=== PATIENT | female | born 2005 | race African-American/Black ===

== ENCOUNTER → 2025-02-04 | Outpatient (CLI) | payer OTHER, SELFPAY ==
[2025-02-04 13:10] LABS: Absolute Lymphocyte Count 3.07 X10^3/uL (0.83-4.51); Absolute Neutrophil Count 2.9 X10^3/uL (2.0-7.7); Basophil# 0.04 X10^3/uL; Basophil% 0.6 % (0-1); Eosinophil# 0.01 X10^3/uL; Eosinophils% 0.1 % (0-5); Hematocrit 24.6 % (37-47); Hemoglobin 6.8 g/dL (12.0-15.0); Lymphocyte # 3.07 X10^3/ul (0.83-4.51); Mean Corp Hgb Conc 27.6 g/dL (32-36); Mean Corpuscular Hgb 18.7 pg (27.0-32.0); Mean Corpuscular Volume 67.6 fL (81-99); Mean Platelet Vol. 9.6 fl (6.2-12.0); NRBC Flagged by Analyzer 0 % (0-5); Neutrophil # 2.94 X10^3/uL (2.7-7.7); POSITIVE MORPHOLOGY YES; Platelet Count 395 K/mm3 (150-450); RBC Distribution Width CV 20.8 % (11.6-14.6); RBC Distribution Width SD 49.8 fl (35.1-43.9); Red Blood Count 3.64 M/mm3 (4.2-5.4); White Blood Count 6.7 K/mm3 (4.4-11.0)
[2025-02-04 13:14] LABS: Differential Indicated SCAN CRITERIA MET
[2025-02-04 13:51] LABS: Iron 11 ug/dL (50-170); Iron Binding Capacity,Unsat 486 ug/dL (228-428)
[2025-02-04 14:04] LABS: Iron Binding Capacity,Total 497 ug/dL (250-450); PERCENT IRON SATURATION 2.2 % (13-59)
[2025-02-04 14:09] LABS: Anisocytosis 2+; Hypochromasia 2+; Polychromasia 1+
== END | disposition home or self-care (01) ==
LOC: LAB 12:14
PROVIDERS: Referring Provider Nurse Practitioner Acute Care; Visit Provider Nurse Practitioner Acute Care
DX: R14.0 Abdominal distension (gaseous) (principal); K62.5 Hemorrhage of anus and rectum; R10.11 Right upper quadrant pain; R10.32 Left lower quadrant pain; Z80.0 Family history of malignant neoplasm of digestive organs
CPT/HCPCS: 36415; 83540; 83550; 85025

== ENCOUNTER → 2025-02-11 | Outpatient (CLI) | payer OTHER, SELFPAY ==
[2025-02-11 17:14] LABS: Absolute Lymphocyte Count 3.91 X10^3/uL (0.83-4.51); Absolute Neutrophil Count 2.6 X10^3/uL (2.0-7.7); Basophil# 0.03 X10^3/uL; Basophil% 0.4 % (0-1); Eosinophils% 1.4 % (0-5); Hematocrit 23.3 % (37-47); Hemoglobin 6.5 g/dL (12.0-15.0); Lymphocyte # 3.91 X10^3/ul (0.83-4.51); Lymphocyte % 55.1 % (19-41); Mean Corp Hgb Conc 27.9 g/dL (32-36); Mean Corpuscular Hgb 19.1 pg (27.0-32.0); Mean Corpuscular Volume 68.3 fL (81-99); Mean Platelet Vol. 9.3 fl (6.2-12.0); Monocyte# 0.45 X10^3/uL; Monocyte% 6.3 % (0-10); NRBC Flagged by Analyzer 0 % (0-5); Neutrophil # 2.59 X10^3/uL (2.7-7.7); Neutrophil % 36.7 % (47-70); POSITIVE MORPHOLOGY YES; Platelet Count 127 K/mm3 (150-450); RBC Distribution Width SD 50.8 fl (35.1-43.9); Red Blood Count 3.41 M/mm3 (4.2-5.4); White Blood Count 7.1 K/mm3 (4.4-11.0)
[2025-02-11 18:59] LABS: Differential Indicated SCAN CRITERIA MET
[2025-02-11 19:01] LABS: Anisocytosis 2+; Hypochromasia 2+; Polychromasia 1+
[2025-02-11 19:02] LABS: Platelet Estimate SLT DEC (ADEQ)
== END | disposition home or self-care (01) ==
PROVIDERS: Referring Provider Nurse Practitioner Acute Care; Visit Provider Nurse Practitioner Acute Care
DX: N92.0 Excessive and frequent menstruation with regular cycle (principal)
CPT/HCPCS: 36415; 85025

== ENCOUNTER 2025-02-15 11:00 | Outpatient (CLI) | payer OTHER, SELFPAY ==
[2025-02-13 09:49] LABS: Absolute Lymphocyte Count 3.25 X10^3/uL (0.83-4.51); Absolute Neutrophil Count 2.6 X10^3/uL (2.0-7.7); Basophil# 0.04 X10^3/uL; Basophil% 0.6 % (0-1); Eosinophil# 0.01 X10^3/uL; Eosinophils% 0.2 % (0-5); Hematocrit 25.1 % (37-47); Immature Platelet Fraction 2.2 % (1.0-7.9); Lymphocyte # 3.25 X10^3/ul (0.83-4.51); Lymphocyte % 51.8 % (19-41); Mean Corp Hgb Conc 27.9 g/dL (32-36); Mean Corpuscular Hgb 18.8 pg (27.0-32.0); Mean Corpuscular Volume 67.5 fL (81-99); Monocyte# 0.35 X10^3/uL; Monocyte% 5.6 % (0-10); NRBC Flagged by Analyzer 0 % (0-5); Neutrophil % 41.3 % (47-70); POSITIVE MORPHOLOGY YES; Platelet Count 124 K/mm3 (150-450); RBC Distribution Width CV 21.2 % (11.6-14.6); RBC Distribution Width SD 49.8 fl (35.1-43.9); RET-HE 17.9 pg (30-35); Red Blood Count 3.72 M/mm3 (4.2-5.4); Reticulocyte Count 1.02 % (0.5-1.5); White Blood Count 6.3 K/mm3 (4.4-11.0)
[2025-02-13 09:56] LABS: Differential Indicated SCAN CRITERIA MET
[2025-02-13 10:19] LABS: ALB/GLOB Ratio 1.3 RATIO (0.9-2.4); AST(SGOT) 20 U/L (<=31); Alanine Aminotransfer ALT/SGPT 14 U/L (<=34); Albumin, Serum 4.2 g/dL (3.5-5.0); Alkaline Phosphatase 64 U/L (35-104); Anion Gap 12 (5-15); BUN 8 mg/dL (4-19); BUN/Creat Ratio 11.8 RATIO (10-20); Calcium,Total 9.6 mg/dL (7.6-11.0); Carbon Dioxide 23.5 mmol/L (21.0-32.0); Chloride 102 mmol/L (98-108); Creatinine, Serum 0.66 mg/dL (0.70-1.20); EST Glomerular Filtration Rate 128 (>60); Ferritin 4 ng/mL (22-378); Globulin 3.3 g/dL (2.2-4.2); Glucose 86 mg/dL (70-99); Potassium 4.1 mmol/L (3.3-5.1); Protein, Total 7.5 g/dL (5.9-8.4); Sodium Level 137 mmol/L (133-145); Total Bilirubin 0.27 mg/dL (0.00-1.30)
[2025-02-13 10:53] LABS: Anisocytosis 2+; Ovalocyte 1+; Platelet Morphology SD; Polychromasia 1+
[2025-02-15 11:27] VITALS: BP 110/63; PULSE 61; RESP 16; TEMP 36.7; O2SAT 100; BMI 25.7
[2025-02-15 11:58] VITALS: BP 97/51; PULSE 61; RESP 16; TEMP 36.3; O2SAT 98
[2025-02-15 12:58] VITALS: BP 99/52; PULSE 61; RESP 14; TEMP 36.6; O2SAT 100
[2025-02-15 14:15] VITALS: BP 119/69; PULSE 69; RESP 14; O2SAT 100
== END 2025-02-15 23:59 | disposition home or self-care (01) ==
LOC: MEDOUTP 11:01
PROVIDERS: Referring Provider Nurse Practitioner Acute Care; Visit Provider Nurse Practitioner Acute Care
DX: D50.9 Iron deficiency anemia, unspecified (principal); N92.0 Excessive and frequent menstruation with regular cycle; R10.32 Left lower quadrant pain; R10.11 Right upper quadrant pain; K62.5 Hemorrhage of anus and rectum; R14.0 Abdominal distension (gaseous)
CPT/HCPCS: 36415; 36430; 80053; 82728; 84443; 85025; 85045; 86850; 86900; 86901; 86920; P9016

== ENCOUNTER → 2025-02-15 | Outpatient (CLI) | payer OTHER, SELFPAY ==
--- NOTE | 2025-02-15 07:31 | US_ITS ---
PROCEDURE: ABDOMEN LIMITED 02/15/2025 REASON FOR EXAM: RUQ PAIN, BLOATING TECHNIQUE: Complete abdominal ultrasound arreaga-scale images with color doppler. PATIENT PREPARATION: Per protocol COMPARISON: None available FINDINGS: The visualized pancreas appears within limits without evidence of pancreatic ductal dilation seen. The liver measures 14.1 cm in length and appears within limits for echogenicity. No evidence of intrahepatic biliary ductal dilation. Hepatic color flow is present with flow in the portal vein hepatopetal as expected. The gallbladder appears within limits without wall thickening, stones or pericholecystic free fluid. Wall measures 2 mm. Report of a negative sonographic Angeles's sign. CBD 2 mm. The right kidney measures 10.1 x 6.1 x 5.2 cm with a cortical thickness of 1.5 cm. No stones, hydronephrosis or perinephric edema seen. No free fluid. US/Abdomen Limited IMPRESSION: Study appears within limits as above. Reading Location: [id number]
== END | disposition home or self-care (01) ==
LOC: US 07:31
PROVIDERS: Referring Provider Nurse Practitioner Acute Care; Visit Provider Nurse Practitioner Acute Care
DX: R14.0 Abdominal distension (gaseous) (principal); K62.5 Hemorrhage of anus and rectum; R10.11 Right upper quadrant pain; R10.32 Left lower quadrant pain; Z80.0 Family history of malignant neoplasm of digestive organs
CPT/HCPCS: 76705

== ENCOUNTER 2025-02-25 10:22 | Day surgery (SDC) | payer OTHER, SELFPAY ==
--- NOTE | 2025-02-24 10:10 | PAT.ANESEVAL ---
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 When Was Last Pacemaker Check QUESTION #4 FULL TEXT: You/Your Family Experience fever (hyperthermia) with Anesthesia Last Oral Intake Last Oral intake: Last Oral Intake NPO since Meds taken in AM with sips of water? Meds patient instructed to take am of surgery PONV PONV - automobile tester: PONV - automobile tester Female Yes 02/24/25 09:27 HX of Motion Sickness No 02/24/25 09:27 HX of N/V After Surgery No 02/24/25 09:27 Non-Smoker Yes 02/24/25 09:27 Duration of Surgery greater No 02/24/25 09:27 than 60 minutes Number of Risk Factors 2 02/24/25 09:27 PONV Score Moderate Risk 02/24/25 09:27 Height & Weight Height & Weight: Anesthesia: Height & Weight Height 5 ft 5 in 02/15/25 11:27 Respiratory Assessment Respiratory Assessment - automobile tester: Respiratory Tract Infection Hx - automobile tester Hx Respiratory Tract Infection Yes: ALLERGY COLD/NO FEVER 02/24/25 09:27 STOP Sleep Apnea STOP Sleep Apnea - automobile tester: STOP Sleep Apnea - automobile tester Hx Hypertension No 02/24/25 09:27 Hx Sleep Apnea No 02/24/25 09:27 CPAP BIPAP Do you snore loudly (louder No 02/24/25 09:27 than talking or can be heard Do you often feel tired/ Yes 02/24/25 09:27 fatigued/ sleepy during daytime? Has anyone observed you stop No 02/24/25 09:27 breathing during sleep? STOP Results Negative 02/24/25 09:27 QUESTION #5 FULL TEXT : Do you snore loudly (louder than talking or can be heard through closed doors)? 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 Specify any problems FEVER,HANDS TURNED PURPLE 02/24/25 09:27 FOR 4 DAYS Hx of Preganancy in last 3 No 02/24/25 09:27 Months Nurse Filling Out Transfusion DSCHRIBER 02/24/25 09:27 & Questions: Date: 02/24/25 02/24/25 09:27 Time: 02/24/25 09:27 Patient unable to answer at this time (ie. confused, unrespo /Reproduction History /Reproductive History - automobile tester: /Reproductive Hx- automobile tester Hx Now No 02/24/25 09:27 Gestational Age (in weeks): EDC: Hx Hx Para Hx Section SAB No 02/24/25 09:27 PFSH Medical History (Updated 02/24/25 @ 09:39 by Paula Sandoval) Wears glasses Depression Anxiety Easy bruising Migraine headache Vasovagal episode Constipation Rectal bleeding Non-smoker Asthma Shortness of breath on exertion Leg cramps History of pain when walking History of edema Chest pain Bulimia Hives Emotional problems Bone fracture Anemia Seasonal allergies Home Medications ?Medication ?Instructions ?Recorded ?Last Taken ?Type fluticasone propionate 50 1 spray intranasal QDAY 02/04/25 Unknown History mcg/actuation nasal spray,suspension Allergy/AdvReac Type Severity Reaction Status Date / Time lactose (lactose intolerant) AdvReac Intermediate Nausea/Vom/ Verified 02/24/25 09:26 Diarrhea Family History Father Colon cancer Mother Depression Grandfather Diabetes Surgical History (Updated 02/24/25 @ 09:39 by Paula Sandoval) History of esophagogastroduodenoscopy (EGD) H/O hernia repair Social History current occupational status: student Smoking Status: Never smoker alcohol intake: never substance use type: does not use what type of physical activity do you participate in: walking, running and weight training frequency: 5-6 times per week additional social history: student from [employer] Recommendation Anesthesia Recommendation Anesthesia recommendation: F/U recommended (She will need CBC on DOS and possibly blood transfusion leading up to her procedure. Hgb < 7 should be treated. If she had transfusion on 02/15/25 we need to have follow up CBC. Can be done on DOS and if she needs transfusion, we will need to do it prior to proceeding with case. ) Follow up Details CBC Recommendation: Yes
[2025-02-25] VITALS (10 sets, daily range): BP systolic 99–111; BP diastolic 58–70; PULSE 50–87; RESP 12–49; TEMP 36.6–36.9; O2SAT 96–100; BMI 27.7
[2025-02-25] MEDS: Lactated Ringers 1,000 ML 15 ML IV (11:14)
[2025-02-25 11:37] LABS: Hematocrit 27.9 % (37-47); Hemoglobin 8.1 g/dL (12.0-15.0); Mean Corpuscular Hgb 20.3 pg (27.0-32.0); Mean Corpuscular Volume 69.8 fL (81-99); Mean Platelet Vol. 9.4 fl (6.2-12.0); POSITIVE COUNT YES; POSITIVE MORPHOLOGY YES; Platelet Count 838 K/mm3 (150-450); RBC Distribution Width CV 23.3 % (11.6-14.6); RBC Distribution Width SD 56.6 fl (35.1-43.9)
[2025-02-25 11:50] LABS: Internal QC Validated? YES +Cl - CLEAR BKGD; Pregnancy, Urine Negative Negative
--- NOTE | 2025-02-25 11:50 | PRE.ANES_ITS ---
ASA Classification* ASA Classification ASA Classification: 2 Assessment & Plan Anesthesia* Anesthesia Assessment Anesthesia Assessment: Discussed sedation and/or anesthesia options, risks, benefits, and alternatives with patient/parents/legal guardian/POA. Questions invited. The patient/parents/legal guardian/POA seems to understand and agrees to proceed with anesthesia plan. Reviewed the physical assessment, medical history, allergy history and patient home medications list prior to surgery/procedure/anesthetic and documented any changes. Performed airway and anesthesia risk assessments. Anesthesia Type Anesthesia Type: MAC History Source History Obtained from:: Patient and Chart Anesthesia Focused Assessment* Temperature: 98.4 F Pulse Rate: 60 Blood Pressure: 100/62 Respiratory Rate: 16 Pulse Ox: 100 Oxygen Delivery Method: Room Air Airway Assessment Mouth opens: >3 cm Mallampati Score: III Teeth Condition: Intact Neck Range of motion (ROM): Full ROM Focused Labs Anesthesia Preop lab: CBC WBC 6.3 K/mm3 (4.4-11.0) 02/13/25 08:37 02/13/25 RBC 3.72 M/mm3 (4.2-5.4) L 02/13/25 08:37 02/13/25 Hgb 7.0 g/dL (12.0-15.0) L 02/13/25 08:37 02/13/25 Hct 25.1 % (37-47) L 02/13/25 08:37 02/13/25 Plt Count 124 K/mm3 (150-450) L 02/13/25 08:37 02/13/25 CHEMISTRY Potassium 4.1 mmol/L (3.3-5.1) 02/13/25 08:37 02/13/25 Sodium 137 mmol/L (133-145) 02/13/25 08:37 02/13/25 BUN 8 mg/dL (4-19) 02/13/25 08:37 02/13/25 Creatinine 0.66 mg/dL (0.70-1.20) L 02/13/25 08:37 Glucose 86 mg/dL (70-99) 02/13/25 08:37 02/13/25 TSH 1.990 uIU/mL (0.300-4.200) 02/13/25 08:37 01/20 04/14 COAG Urine Test Pending 02/25/25 10:54 02/25/25 Pre-Assessment Diagnosis/Proposed Procedure Planned Operative Procedure(s): CSCOPE Anesthesia History 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 When Was Last Pacemaker Check QUESTION #4 FULL TEXT: You/Your Family Experience fever (hyperthermia) with Anesthesia Last Oral Intake Last Oral intake: Last Oral Intake NPO since 09:14 02/25/25 10:52 Meds taken in AM with sips of water? Meds patient instructed to take am of surgery Any additional information?: Yes NPO since: : (Patient water at 9:14 AM.) Meds taken in AM with sips of water?: Yes PONV PONV - career development engineer: PONV - career development engineer Female Yes 02/24/25 09:27 HX of Motion Sickness No 02/24/25 09:27 HX of N/V After Surgery No 02/24/25 09:27 Non-Smoker Yes 02/24/25 09:27 Duration of Surgery greater No 02/24/25 09:27 than 60 minutes Number of Risk Factors 2 02/24/25 09:27 PONV Score Moderate Risk 02/24/25 09:27 Height & Weight Height & Weight: Anesthesia: Height & Weight Height 5 ft 3 in 02/25/25 10:52 Weight: 71 kg 02/25/25 10:52 Body Mass Index (BMI) 27.7 02/25/25 10:52 Respiratory Assessment Respiratory Assessment - career development engineer: Respiratory Tract Infection Hx - career development engineer Hx Respiratory Tract Infection Yes: ALLERGY COLD/NO FEVER 02/24/25 09:27 Patient had a fever last week after a blood transfusion. It was short-lived. No respiratory symptoms. STOP Sleep Apnea STOP Sleep Apnea - career development engineer: STOP Sleep Apnea - career development engineer Hx Hypertension No 02/24/25 09:27 Hx Sleep Apnea No 02/24/25 09:27 CPAP BIPAP Do you snore loudly (louder No 02/24/25 09:27 than talking or can be heard Do you often feel tired/ Yes 02/24/25 09:27 fatigued/ sleepy during daytime? Has anyone observed you stop No 02/24/25 09:27 breathing during sleep? STOP Results Negative 02/24/25 09:27 QUESTION #5 FULL TEXT : Do you snore loudly (louder than talking or can be heard through closed doors)? 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 Specify any problems FEVER,HANDS TURNED PURPLE 02/24/25 09:27 FOR 4 DAYS Hx of Preganancy in last 3 No 02/24/25 09:27 Months Nurse Filling Out Transfusion DSCHRIBER 02/24/25 09:27 & Questions: Date: 02/24/25 02/24/25 09:27 Time: 02/24/25 09:27 Patient unable to answer at this time (ie. confused, unrespo /Reproduction History /Reproductive History - career development engineer: /Reproductive Hx- career development engineer Hx Now No 02/24/25 09:27 Gestational Age (in weeks): EDC: Hx Hx Para Hx Section SAB No 02/24/25 09:27 Active Medications Active Medications: Current Medications Generic Name Dose Route Start Last Admin Trade Name Freq PRN Reason Stop Dose Admin Lactated Ringer's 1,000 mls @ 15 mls/hr 02/25/25 10:30 02/25/25 11:14 IV 15 mls/hr .Q48H ALICJA Administration PFSH Medical History Wears glasses Depression Anxiety Easy bruising Migraine headache Vasovagal episode Constipation Rectal bleeding Non-smoker Asthma Shortness of breath on exertion Leg cramps History of pain when walking History of edema Chest pain Bulimia Hives Emotional problems Bone fracture Anemia Seasonal allergies Home Medications ?Medication ?Instructions ?Recorded ?Last Taken ?Type fluticasone propionate 50 1 spray intranasal QDAY 01/19 05/14 Unknown History mcg/actuation nasal spray,suspension Allergy/AdvReac Type Severity Reaction Status Date / Time lactose (lactose intolerant) AdvReac Intermediate Nausea/Vom/ Verified 02/25/25 10:48 Diarrhea Family History Father Colon cancer Mother Depression Grandfather Diabetes Surgical History History of esophagogastroduodenoscopy (EGD) H/O hernia repair Social History current occupational status: student Smoking Status: Never smoker alcohol intake: never substance use type: does not use what type of physical activity do you participate in: walking, running and weight training frequency: 5-6 times per week additional social history: student from [employer] Review of Systems (Anesthesia) ROS Narrative System reviewed and no additional complaints, except as documented.
[2025-02-25 12:03] LABS: Scan Indicated on CBC? Y/N YES- FLAGS NOTED
[2025-02-25 12:04] LABS: Pathologist Review May foll
--- NOTE | 2025-02-25 12:08 | PCM.HP.STD ---
HPI - General General Date of Admission: 02/25/25 Date of Service: 02/25/25 Chief Complaint: Gi bleeding HPI Narrative MARVA RAMESH, is a 20 F who presents with the Chief Complaint of anemia and rectal bleeding BRBPR 3 episodes, started last Saturday - hard stools and straining with BM - mild abdominal discomfort - dull RUQ pain and occasional sharp LLQ pain - she has a BM Once every 3-5 days - abdominal discomfort improves with a BM - c/o bloating - Father with colon cancer 45y/o - Paternal GF with colon CA at 65y/o - she is eating 3 meals a day - she is pescatarian? - a lot of vegetables, beans and rice - water intake is good - reports last labs showed anemia - regular menstrual cycles - have been heavy and now 6d instead of 2-3d, every 28d, LMP 20 days ago - cramping with menses - worsening with bloating - reports when in [facility] she had an US which they thought maybe showed a uterine cyst - Baobab fruit from the tree of life - powder supplement - helps with bloating/inflammation [facility] Medical History Wears glasses Depression Anxiety Easy bruising Migraine headache Vasovagal episode Constipation Rectal bleeding Non-smoker Asthma Shortness of breath on exertion Leg cramps History of pain when walking History of edema Chest pain Bulimia Hives Emotional problems Bone fracture Anemia Seasonal allergies Home Medications ?Medication ?Instructions ?Recorded ?Last Taken ?Type fluticasone propionate 50 1 spray intranasal QDAY 02/04/25 Unknown History mcg/actuation nasal spray,suspension Allergy/AdvReac Type Severity Reaction Status Date / Time lactose (lactose intolerant) AdvReac Intermediate Nausea/Vom/ Verified 02/25/25 10:48 Diarrhea Family History Father Colon cancer Mother Depression Grandfather Diabetes Surgical History History of esophagogastroduodenoscopy (EGD) H/O hernia repair Social History current occupational status: student Smoking Status: Never smoker alcohol intake: never substance use type: does not use what type of physical activity do you participate in: walking, running and weight training frequency: 5-6 times per week additional social history: student from [facility] ROS Constitutional Constitutional: Denies fatigue, fever(s), poor appetite, weight gain or weight loss Gastrointestinal Gastrointestinal: Denies belching, bloating, change in bowel habits, change in stool character, chewing difficulty, coffee ground emesis, constipation, cramping, diarrhea, dyspepsia, dysphagia, early satiety, excessive flatus, fecal incontinence, heartburn, hematemesis, hematochezia, hemorrhoids, loose stools, melena, nausea, odynophagia, rectal bleeding, tenesmus, vomiting or weight changes Vital Signs Vital Signs Vital Signs: 02/25/25 10:52 02/25/25 10:52 02/25/25 12:03 Temperature 98.4 F 98.4 F Temperature Source Temporal Pulse Rate 60 60 Respiratory Rate 16 16 Respiratory Pattern Normal Blood Pressure 100/62 100/62 Blood Pressure Mean 74 Blood Pressure Source Monitor Blood Pressure Position Semi-Fowlers Blood Pressure Location Left Arm Pulse Ox 100 100 Oxygen Delivery Method Room Air Room Air Weight Weight: 156 lb 8.451 oz Body Mass Index (BMI) 27.7 Physical Exam Const alert, oriented x3, no apparent distress and healthy appearing General Appearance: cooperative GI normal to inspection, nondistended, normoactive bowel sounds, soft to palpation, non-tender and non-distended Percussion: normal to percussion Rectal Exam: deferred Results Lab / Micro Data 02/25/25 10:54 Labs: Laboratory Results - last 24 hr 02/25/25 10:54: WBC 8.0, RBC 4.00 L, Hgb 8.1 L, Hct 27.9 L, MCV 69.8 L, MCH 20.3 L, MCHC 29.0 L, RDW Std Deviation 56.6 H, RDW Coeff of Saroj 23.3 H, Plt Count 838 H*, MPV 9.4, Differential Comment , Diff Path Review February, Urine Test Negative Assessment & Plan Assessment/Plan (1) Iron deficiency anemia: (2) Rectal bleeding: (3) RUQ pain: (4) LLQ pain: PLAN: Assessment and Plan Assessment and Plan (1) Bloating: Status: Acute (2) Rectal bleeding: Status: Acute (3) RUQ pain: Status: Acute (4) LLQ pain: Status: Acute (5) Family history of colon cancer: Status: Acute (6) Heavy menstrual bleeding: Status: Acute Orders: Orders CBC W/Diff, Automated Today K62.5 - Hemorrhage of anus and rectum, R10.11 - Right upper quadrant pain, R10.32 - Left lower quadrant pain, R14.0 - Abdominal distension (gaseous), Z80.0 - Family history of malignant neoplasm of digestive organs Iron+Iron Binding Capacity Today K62.5 - Hemorrhage of anus and rectum, R10.11 - Right upper quadrant pain, R10.32 - Left lower quadrant pain, R14.0 - Abdominal distension (gaseous), Z80.0 - Family history of malignant neoplasm of digestive organs Abdomen Limited Today K62.5 - Hemorrhage of anus and rectum, R10.11 - Right upper quadrant pain, R10.32 - Left lower quadrant pain, R14.0 - Abdominal distension (gaseous), Z80.0 - Family history of malignant neoplasm of digestive organs 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 Family history is significant for father with colon cancer at 45 years old and paternal grandfather. Abdominal exam reveals mild RUQ, epigastric and LLQ abdominal discomfort with palpation. I have ordered labs, abdominal ultrasound and colonoscopy. She reports a change in menstrual cycles with heavy menses, increase in duration and abdominal cramping with moving [place] the [place] in [place]. She will complete labs today. I have recommended she complete an ABD US and colonoscopy. She will follow-up in the office post procedure.
--- NOTE | 2025-02-25 13:02 | PCM.POST.ANE ---
Anesthesia: Postop Eval I Current Vital Signs Temperature: 98 F Pulse Rate: 87 Blood Pressure: 111/70 Respiratory Rate: 16 Pulse Ox: 100 Oxygen Delivery Method: Room Air Assessment Airway patent: Yes Spontaneous unlabored respirations: Yes Mental status: Asleep nausea: No Vomiting: No Anesthesia Complication: No Fluid Hydration Crystalloid volume administer (ml): 900 Total IV fluid infused: 900 Progress Note Anesthesia document: Postop Eval 1 completed: Yes
--- NOTE | 2025-02-25 13:43 | OP.COLON_ITS ---
Patient Name: Edvin Bell Procedure Date: 02/25/2025 12:08 PM Date of : 2005 Age: 20 Procedure: Colonoscopy Indications: Iron deficiency anemia Providers: Balwinder Caldwell DO Referring MD: No Primary Care Physician Medicines: Monitored Anesthesia Care Patient Profile: This is a 20 year old female. Refer to note in patient chart for documentation of history and physical. Last Colonoscopy: none. The patient's first colonoscopy is today. Complications: No immediate complications. Procedure: Pre-Anesthesia Assessment: - Prior to the procedure, a History and Physical was performed, and patient medications and allergies were reviewed. The patient is competent. The risks and benefits of the procedure and the sedation options and risks were discussed with the patient. All questions were answered and informed consent was obtained. Patient identification and proposed procedure were verified by the physician in the pre-procedure area. Mental Status Examination: alert and oriented. Airway Examination: normal oropharyngeal airway and neck mobility. Respiratory Examination: clear to auscultation. CV Examination: normal. Prophylactic Antibiotics: The patient does not require prophylactic antibiotics. Prior Anticoagulants: The patient has taken no anticoagulant or antiplatelet agents. ASA Grade Assessment: II - A patient with mild systemic disease. After reviewing the risks and benefits, the patient was deemed in satisfactory condition to undergo the procedure. The anesthesia plan was to use moderate sedation / analgesia (conscious sedation). Immediately prior to administration of medications, the patient was re-assessed for adequacy to receive sedatives. The heart rate, respiratory rate, oxygen saturations, blood pressure, adequacy of pulmonary ventilation, and response to care were monitored throughout the procedure. The physical status of the patient was re-assessed after the procedure. After I obtained informed consent, the scope was passed under direct vision. Throughout the procedure, the patient's blood pressure, pulse, and oxygen saturations were monitored continuously. The pediatric colonoscope was introduced through the anus and advanced to the terminal ileum. The colonoscopy was performed without difficulty. The patient tolerated the procedure well. The quality of the bowel preparation was adequate. The terminal ileum, ileocecal valve, appendiceal orifice, and rectum were photographed. Scope In: 12:21:32 PM Scope Withdrawal Time 0 hours 6 minutes 45 seconds Scope Out: 12:50:17 PM Total Procedure Duration Time 0 hours 28 minutes 45 seconds Findings: The perianal and digital rectal examinations were normal. The colon (entire examined portion) appeared normal. The terminal ileum appeared normal. Non-bleeding internal hemorrhoids were found during retroflexion. The hemorrhoids were small and Grade I (internal hemorrhoids that do not prolapse). Impression: - The entire examined colon is normal. - The examined portion of the ileum was normal. - No specimens collected. Recommendation: - Discharge patient to home. - Resume previous diet. - Continue present medications. - Repeat colonoscopy at age 44 for screening purposes. Procedure Code(s): --- Professional --- 86670, Colonoscopy, flexible; diagnostic, including collection of specimen(s) by brushing or washing, when performed (separate procedure) CPT copyright 2021 [employer]. All rights reserved. The codes documented in this report are preliminary and upon french tutor review may be revised to meet current compliance requirements. Balwinder Caldwell DO 02/25/2025 1:42:52 PM This report has been signed electronically. Number of Addenda: 0 Note Initiated On: 02/25/2025 12:08 PM
--- NOTE | 2025-02-25 13:43 | OP.CCLET_ITS ---
02/25/2025 No Primary Care Physician Re : Colonoscopy procedure for Edvin Bell Dear Care Physician This procedure was performed on February. My impressions and recommendations are as follows: Impressions : - The entire examined colon is normal. - The examined portion of the ileum was normal. - No specimens collected. Recommendations : - Discharge patient to home. - Resume previous diet. - Continue present medications. - Repeat colonoscopy at age 44 for screening purposes. My findings are described in the full procedure note, which is enclosed. If I can be of further assistance, please feel free to contact me at . Sincerely, Balwinder Caldwell, 02/25/2025 1:42:52 PM This report has been signed electronically.
--- NOTE | 2025-02-25 14:40 | SUR.PHASEII ---
dr rodriguez spoke with pt. pt told to start oral ferrous gluconate and vitamin c over the counter.
--- NOTE | 2025-02-25 15:35 | PCM.POSTANE2 ---
Anesthesia Postop Eval I Sum Postop Eval Completion status Anesthesia document: Postop Eval 1 completed: Yes Anesthesia Postop Eval I Summary Anesthesia Postop Eval I Summary: Anesthesia Postop Eval I: Assessment Summary Airway patent Yes 02/25/25 13:03 [email or web address] Spontaneous unlabored Yes 02/25/25 13:03 [email or web address] respirations Mental status Asleep 02/25/25 13:03 [email or web address] nausea No 02/25/25 13:03 [email or web address] Vomiting No 02/25/25 13:03 [email or web address] Anesthesia Postop Eval I: Fluid Summary Crystalloid volume administer 900 02/25/25 13:03 [email or web address] (ml) Colloids volume administered ( ml) Blood Product volume administered (ml) Total IV fluid infused 900 02/25/25 13:03 [email or web address] Anesthesia Postop Eval I: Summary Notes Anesthesia Complication No 02/25/25 13:03 [email or web address] Anesthesia Complication Comment: Post-operative progress note Anesthesia: Postop Eval II Evaluation Mental status: Awake and Calm Pain Level: 0 nausea: No Vomiting: No Complications Anesthesia Complication: No
== END 2025-02-25 14:51 | disposition home or self-care (01) ==
LOC: EN 10:22 → AC 10:23
PROVIDERS: Student in an Organized Health Care Education/Training Program; Visit Provider Internal Medicine Gastroenterology
PROC: 0DJD8ZZ Inspection of Lower Intestinal Tract, Via Natural or Artificial Opening Endoscopic (ICD-10-PCS; CPT 45378; principal; 2025-02-25 11:40)
DX: K64.0 First degree hemorrhoids (principal); K62.5 Hemorrhage of anus and rectum; N92.0 Excessive and frequent menstruation with regular cycle; D50.9 Iron deficiency anemia, unspecified; Z80.0 Family history of malignant neoplasm of digestive organs; J45.909 Unspecified asthma, uncomplicated
CPT/HCPCS: 45378; 81025; 85027; J2405

== ENCOUNTER → 2025-03-09 | Outpatient (CLI) | payer OTHER, SELFPAY ==
[2025-03-09 15:31] LABS: Absolute Lymphocyte Count 2.59 X10^3/uL (0.83-4.51); Absolute Neutrophil Count 5.4 X10^3/uL (2.0-7.7); Basophil# 0.04 X10^3/uL; Basophil% 0.5 % (0-1); Eosinophil# 0.29 X10^3/uL; Eosinophils% 3.3 % (0-5); Hematocrit 32.5 % (37-47); Hemoglobin 9.3 g/dL (12.0-15.0); Lymphocyte # 2.59 X10^3/ul (0.83-4.51); Lymphocyte % 29.3 % (19-41); Mean Corp Hgb Conc 28.6 g/dL (32-36); Mean Corpuscular Hgb 20.9 pg (27.0-32.0); Mean Corpuscular Volume 73.2 fL (81-99); Mean Platelet Vol. 9.4 fl (6.2-12.0); Monocyte# 0.51 X10^3/uL; Monocyte% 5.8 % (0-10); NRBC Flagged by Analyzer 0 % (0-5); Neutrophil # 5.39 X10^3/uL (2.7-7.7); Neutrophil % 60.8 % (47-70); POSITIVE MORPHOLOGY YES; Platelet Count 185 K/mm3 (150-450); RBC Distribution Width CV 26.2 % (11.6-14.6); RBC Distribution Width SD 60.8 fl (35.1-43.9); Red Blood Count 4.44 M/mm3 (4.2-5.4); White Blood Count 8.9 K/mm3 (4.4-11.0)
[2025-03-09 15:58] LABS: Differential Indicated SCAN CRITERIA MET
[2025-03-09 16:11] LABS: Ferritin 20 ng/mL (22-378); Iron 32 ug/dL (50-170); Iron Binding Capacity,Unsat 468 ug/dL (228-428)
[2025-03-09 17:21] LABS: Iron Binding Capacity,Total 500 ug/dL (250-450)
[2025-03-09 19:42] LABS: Anisocytosis 1+; Platelet Estimate ADEQUATE (ADEQ); Polychromasia 1+
[2025-03-09 19:43] LABS: Hypochromasia 1+
[2025-03-11 15:08] LABS: Immunoglobulin A 112 mg/dL (87-352); t-Transglutaminase IgA <2 U/mL (0-3)
== END | disposition home or self-care (01) ==
LOC: LAB 13:03
PROVIDERS: Referring Provider Nurse Practitioner Acute Care; Visit Provider Nurse Practitioner Acute Care
DX: D50.9 Iron deficiency anemia, unspecified (principal); R14.0 Abdominal distension (gaseous)
CPT/HCPCS: 36415; 82728; 82784; 83516; 83540; 83550; 85025

== ENCOUNTER 2025-06-27 19:38 | Emergency (ER) | payer OTHER, SELFPAY ==
[2025-06-27 19:38] VITALS: BP 130/72; PULSE 58; RESP 16; TEMP 36.2; O2SAT 99; BMI 28.6
--- OUTSIDE RECORDS SUMMARY | 2025-06-27 19:56 | XMS RPT_ITS | CCD ---
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 02-25-2025 WBC (Bld) [#/Vol] 8.0 10*3/uL 4.4-11.0 [facility] MR/PATSAPPHIREon 02-24-2025 MR/PATSAPPHIRE [facility] Medical Records Department [address] [place] [address] PAT - Anesthesia 02/24/25 1010 MR#: [id number] Acct: [id number] Name: MARVA RAMESH Rep #: [id number] : 2005 20 From: Kurt Arevalo MD PCP: Care Physician,No [place] [facility] [place]: AA Location: EN Pre-Assessment Diagnosis/Proposed Procedure Planned Operative Procedure(s): CSCOPE Anesthesia History Anesthesia History - safety leader: Anesthesia History - safety leader Hx Hospitalization No 02/24/25 09:27 Any Problems With Anesthesia No 02/24/25 09:27 Cholinesterase deficiency No 02/24/25 09:27 You/Your Family Experience No 02/24/25 09:27 fever (hyperthermia) with Relationship Recent Exposure to Contagious Disease Does patient have nerve No 02/24/25 09:27 stimulator Patient instructed to have device shut off --Does patient have Pacemaker or ICD? When Was Last Pacemaker Check QUESTION #4 FULL TEXT: You/Your Family Experience fever (hyperthermia) with Anesthesia Last Oral Intake Last Oral intake: Last Oral Intake NPO since Meds taken in AM with sips of water? Meds patient instructed to take am of surgery PONV PONV - safety leader: PONV - safety leader Female Yes 02/24/25 09:27 HX of Motion Sickness No 02/24/25 09:27 HX of N/V After Surgery No 02/24/25 09:27 Non-Smoker Yes 02/24/25 09:27 Duration of Surgery greater No 02/24/25 09:27 than 60 minutes Number of Risk Factors 2 02/24/25 09:27 PONV Score Moderate Risk 02/24/25 09:27 Height Weight Height Weight: Anesthesia: Height Weight Height 5 ft 5 in 02/15/25 11:27 Respiratory Assessment Respiratory Assessment - safety leader: Respiratory Tract Infection Hx - safety leader Hx Respiratory Tract Infection Yes: ALLERGY COLD/NO FEVER 02/24/25 09:27 STOP Sleep Apnea STOP Sleep Apnea - safety leader: STOP Sleep Apnea - safety leader Hx Hypertension No 02/24/25 09:27 Hx Sleep Apnea No 02/24/25 09:27 CPAP BIPAP Do you snore loudly (louder No 02/24/25 09:27 than talking or can be heard Do you often feel tired/ Yes 02/24/25 09:27 fatigued/ sleepy during daytime? Has anyone observed you stop No 02/24/25 09:27 breathing during sleep? STOP Results Negative 02/24/25 09:27 QUESTION #5 FULL TEXT : Do you snore loudly (louder than talking or can be heard through closed doors)? 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 confused, unrespo /Reproduction History /Reproductive History - safety leader: /Reproductive Hx- safety leader Hx Now No 02/24/25 09:27 Gestational Age (in weeks): EDC: Hx Hx Para Hx Section SAB No 02/24/25 09:27 [facility] Medical History (Updated 02/24/25 @ 09:39 by Paula Sandoval) Wears glasses Depression Anxiety Easy bruising Migraine headache Vasovagal episode Constipation Rectal bleeding Non-smoker Asthma Shortness of breath on exertion Leg cramps History of pain when walking History of edema Chest pain Bulimia Hives Emotional problems Bone fracture Anemia Seasonal allergies Home Medications ???Medication ???Instructions ???Recorded ???Last Taken ???Type fluticasone propionate 50 1 spray intranasal QDAY 02/04/25 U nknown History mcg/actuation nasal spray,suspension Allergy/AdvReac Type Severity Reaction Status Date / Time lactose (lactose intolerant) AdvReac Intermediate Nausea/Vom/ Verified 02/24/25 09:26 Diarrhea Family History Father Colon cancer Mother Depression (more content not included)... Normal [facility] Abdomen Limitedon 02-15-2025 Abdomen Limited [facility] Imaging Services [address] [place] [address] Abdomen Limited MR#: [id number] Acct: [id number] Name: MARVA RAMESH Rep #: [id number] : 2005 F 20 From: Fredy Chavez MD PCP: Care Physician,No Primary Status: REG CLI Study: Abdomen Limited Date of Exam: 02/15/25 Exam# [id number] Ordering Dr: Sandy Lutz PROCEDURE: ABDOMEN LIMITED 02/15/2025 REASON FOR EXAM: RUQ PAIN, BLOATING TECHNIQUE: Complete abdominal ultrasound arreaga-scale images with color doppler. PATIENT PREPARATION: Per protocol COMPARISON: None available FINDINGS: The visualized pancreas appears within limits without evidence of pancreatic ductal dilation seen. The liver measures 14.1 cm in length and appears within limits for echogenicity. No evidence of intrahepatic biliary ductal dilation. Hepatic color flow is present with flow in the portal vein hepatopetal as expected. The gallbladder appears within limits without wall thickening, stones or pericholecystic free fluid. Wall measures 2 mm. Report of a negative sonographic Angeles's sign. CBD 2 mm. The right kidney measures 10.1 x 6.1 x 5.2 cm with a cortical thickness of 1.5 cm. No stones, hydronephrosis or perinephric edema seen. No free fluid. US/Abdomen Limited IMPRESSION: Study appears within limits as above. Reading Location: [facility] CC: MIKE Lutz; No Primary Care Physician Art Teacher: Signed Normal [facility] Absolute lymphocyte countOrd ered By: Sandy Lutz on 02-13-2025 Lymphocytes Auto (Unsp spec) [#/Vol] 3.25 10*3/uL 0.83-4.51 [facility] Absolute neutrophil countOrd ered By: Sandy Lutz on 02-13-2025 Neutrophils (Bld) [#/Vol] 2.6 10*3/uL 2.0-7.7 [facility] Anion gap in Serum or Plasma Ordered By: Sandy Lutz on 02-13-2025 Anion gap [Moles/Vol] 12 mmol/L 5-15 [facility] Automated lymphocyte count a s percentage of total leukocytesOrdered By: Sandy Lutz on 02-13-2025 Lymphocytes/100 WBC Auto (Unsp spec) 51.8 % High 19-41 [facility] BRCon 02-13-2025 RC Normal [facility] Comment on above: Result Comment: [id number] OP RC TRANSFUSED 02/15/25 1135 Performed By: #### L 503.6550, L501.9520, BRC, L500.4050, L100.9950, L100.0100, BTS #### [facility] [address] [place], [address] BUN/creatinine ratioOrdered By: Sandy Lutz on 02-13-2025 Urea nitrogen/Creatinine [Mass ratio] 11.8 mg/mg 10-20 [facility] Basophil percentageOrdered B y: Sandy Lutz on 02-13-2025 Basophils/100 WBC (Bld) 0.6 % 0-1 [facility] Bilirubin, totalOrdered By: Sandy Lutz on 02-13-2025 Bilirubin [Mass/Vol] 0.27 mg/dL 0.00-1.30 [facility] Blood polychromasia detectio n by light microscopyOrdered By: Sandy Lutz on 02-13-2025 Polychromasia LM Ql (Bld) 1+ [facility] CBC W/Diff, Automatedon 01-20 Anisocytosis Ql (Bld) 2+ Normal [facility] Comment on above: Performed By: #### L 503.6550, L501.9520, BRC, L500.4050, L100.9950, L100.0100, BTS #### [facility] [address] [place], [address] OVALOCYTE 1+ Normal [facility] Comment on above: Performed By: #### L 503.6550, L501.9520, BRC, L500.4050, L100.9950, L100.0100, BTS #### [facility] [address] [place], [address] PLT MORPH SD Normal [facility] Comment on above: Performed By: #### L 503.6550, L501.9520, BRC, L500.4050, L100.9950, L100.0100, BTS #### [facility] [address] [place], [address] POLYCHROMASIA 1+ Normal [facility] Comment on above: Performed By: #### L 503.6550, L501.9520, BRC, L500.4050, L100.9950, L100.0100, BTS #### [facility] [address] [place], [address] Carbon dioxide, total [Moles /volume] in Central venous bloodOrdered By: Sandy Lutz on 02-13-2025 CO2 [Moles/Vol] 23.5 mmol/L 21.0-32.0 [facility] Chloride assayOrdered By: Vincent Lutz on 02-13-2025 Chloride [Moles/Vol] 102 mmol/L 98-108 [facility] Comprehensive Metabolic Prof ilon 02-13-2025 Albumin [Mass/Vol] 4.2 g/dL Normal 3.5-5.0 [facility] Comment on above: Performed By: #### L 503.6550, L501.9520, BRC, L500.4050, L100.9950, L100.0100, BTS #### [facility] [address] [place], [address] Albumin/Globulin [Mass ratio] 1.3 {ratio} Normal 0.9-2.4 [facility] Comment on above: Performed By: #### L 503.6550, L501.9520, BRC, L500.4050, L100.9950, L100.0100, BTS #### [facility] [address] [place], [address] ALK PHOS 64 U/L Normal 35-104 [facility] Comment on above: Performed By: #### L 503.6550, L501.9520, BRC, L500.4050, L100.9950, L100.0100, BTS #### [facility] [address] [place], [address] ALT [Catalytic activity/Vol] 14 U/L Normal <=34 [facility] Comment on above: Performed By: #### L 503.6550, L501.9520, BRC, L500.4050, L100.9950, L100.0100, BTS #### [facility] [address] [place], [address] AST [Catalytic activity/Vol] 20 U/L Normal <=31 [facility] Comment on above: Performed By: #### L 503.6550, L501.9520, BRC, L500.4050, L100.9950, L100.0100, BTS #### [facility] [address] [place], [address] Bilirubin [Mass/Vol] 0.27 mg/dL Normal 0.00-1.30 [facility] Comment on above: Performed By: #### L 503.6550, L501.9520, BRC, L500.4050, L100.9950, L100.0100, BTS #### [facility] [address] [place], [address] BUN/CRE 11.8 RATIO Normal 10-20 [facility] Comment on above: Performed By: #### L 503.6550, L501.9520, BRC, L500.4050, L100.9950, L100.0100, BTS #### [facility] [address] [place], [address] Calcium [Mass/Vol] 9.6 mg/dL Normal 7.6-11.0 [facility] Comment on above: Performed By: #### L 503.6550, L501.9520, BRC, L500.4050, L100.9950, L100.0100, BTS #### [facility] [address] [place], [address] Chloride [Moles/Vol] 102 mmol/L Normal 98-108 [facility] Comment on above: Performed By: #### L 503.6550, L501.9520, BRC, L500.4050, L100.9950, L100.0100, BTS #### [facility] [address] [place], [address] CO2 [Moles/Vol] 23.5 mmol/L Normal 21.0-32.0 [facility] Comment on above: Performed By: #### L 503.6550, L501.9520, BRC, L500.4050, L100.9950, L100.0100, BTS #### [facility] [address] [place], [address] Creatinine [Mass/Vol] 0.66 mg/dL Low 0.70-1.20 [facility] Comment on above: Performed By: #### L 503.6550, L501.9520, BRC, L500.4050, L100.9950, L100.0100, BTS #### [facility] [address] [place], [address] GAP 12 Normal 5-15 [facility] Comment on above: Performed By: #### L 503.6550, L501.9520, BRC, L500.4050, L100.9950, L100.0100, BTS #### [facility] [address] [place], [address] GFR/1.73 sq M.predicted among non-blacks MDRD (S/P/Bld) [Vol rate/Area] 128 mL/min/{1.73_m2} Normal >60 [facility] Comment on above: Result Comment: mL/m in/1.73m2 CKD-EPI Creatinine Equation (2020) Performed By: #### L 503.6550, L501.9520, BRC, L500.4050, L100.9950, L100.0100, BTS #### [facility] [address] [place], [address] Globulin (S) [Mass/Vol] 3.3 g/dL Normal 2.2-4.2 [facility] Comment on above: Performed By: #### L 503.6550, L501.9520, BRC, L500.4050, L100.9950, L100.0100, BTS #### [facility] [address] [place], [address] Glucose [Mass/Vol] 86 mg/dL Normal 70-99 [facility] Comment on above: Performed By: #### L 503.6550, L501.9520, BRC, L500.4050, L100.9950, L100.0100, BTS #### [facility] [address] [place], [address] Potassium [Moles/Vol] 4.1 mmol/L Normal 3.3-5.1 [facility] Comment on above: Performed By: #### L 503.6550, L501.9520, BRC, L500.4050, L100.9950, L100.0100, BTS #### [facility] [address] [place], [address] Sodium [Moles/Vol] 137 mmol/L Normal 133-145 [facility] Comment on above: Performed By: #### L 503.6550, L501.9520, BRC, L500.4050, L100.9950, L100.0100, BTS #### [facility] [address] [place], [address] T PROT 7.5 g/dL Normal 5.9-8.4 [facility] Comment on above: Performed By: #### L 503.6550, L501.9520, BRC, L500.4050, L100.9950, L100.0100, BTS #### [facility] [address] [place], [address] Urea nitrogen [Mass/Vol] 8 mg/dL Normal 4-19 [facility] Comment on above: Performed By: #### L 503.6550, L501.9520, [facility], L500.4050, L100.9950, L100.0100, BTS #### [facility] [address] [place], [address] Eosinophil percentageOrdered By: Sandy Lutz on 02-13-2025 Eosinophils/100 WBC (Bld) 0.2 % 0-5 [facility] Erythrocyte distribution wid th (RBC) [Ratio]Ordered By: Sandy Lutz on 02-13-2025 Erythrocyte distribution width (RBC) [Entitic vol] 49.8 fL High 35.1-43.9 [facility] Erythrocyte distribution wid th ratioOrdered By: Sandy Lutz on 02-13-2025 Erythrocyte distribution width (RBC) [Ratio] 21.2 % High 11.6-14.6 [facility] Erythrocyte distribution wid th standard deviationOrdered By: Sandy Lutz on 02-13-2025 Erythrocyte distribution width (RBC) [Ratio] 49.8 fl High 35.1-43.9 [facility] Ferritinon 02-13-2025 Ferritin [Mass/Vol] 4 ng/mL Low 22-[address] [facility] Comment on above: Performed By: #### L 503.6550, L501.9520, [facility], L500.4050, L100.9950, L100.0100, BTS #### [facility] [address] [place], [address] GFR/1.73 sq M.predicted hellen g non-blacks MDRD (S/P/Bld) [Vol rate/Area]Ordered By: Sandy Lutz on 02-13-2025 Estimated GFR (MDRD) Non-Af Amer 128 >60 [facility] Comment on above: mL/min/1.73m2 CKD-EP I Creatinine Equation (2020) Glomerular filtration rate ( GFR) estimation/1.73 sq m using serum, plasma, or whole bOrdered By: Sandy Lutz on 02-13-2025 GFR/1.73 sq M.predicted among non-blacks MDRD (S/P/Bld) [Vol rate/Area] 128 mL/min/{1.73_m2} >60 [facility] Comment on above: mL/min/1.73m2 CKD-EP I Creatinine Equation (2020) Hematocrit Auto (Bld) [Volum e fraction]Ordered By: Sandy Lutz on 02-13-2025 Hematocrit (Bld) [Volume fraction] 25.1 % Low 37-47 [facility] Hemoglobin (Reticulocytes) [ Entitic mass]Ordered By: Sandy Lutz on 02-13-2025 Reticulocyte Hemoglobin Equivalent 17.9 pg Low 30-35 [facility] Hemoglobin measurementOrdere d By: Sandy Lutz on 02-13-2025 Hemoglobin (Bld) [Mass/Vol] 7.0 g/dL Low 12.0-15.0 [facility] Immature granulocytes/100 WB C Auto (Bld)Ordered By: Sandy Lutz on 02-13-2025 Immature granulocytes/100 WBC (Bld) 0.500 % 0.0-0.9 [facility] Comment on above: IG% - Immature Granu locytes (promyelocytes, myelocytes and metamyelocytes) > 1% indicates that a LEFT SHIFT is Present. Immature platelet percentage Ordered By: Sandy Lutz on 02-13-2025 Platelets reticulated/100 platelets Auto (Bld) 2.2 % 1.0-7.9 [facility] Comment on above: Low PLT + Low IPF mujica ggest a bone marrow production disorderLow PLT + high IPF suggests peripheral destruction(e.g.ITP, TTP, HIT, DIC, autoimmune) or bone marrow recoveryTrending of serial IPF measurements is recommended when evaluating for bone marrow responesValue above normal range indicates an increase in RBC cellular response from bone marrow. Immature reticulocyte fracti onOrdered By: Sandy Lutz on 02-13-2025 Immature Reticulocyte Fraction 20.20 % High 3.00-15.90 [facility] - Chemistry and C hemistry - challengeOrdered By: Sandy Lutz on 02-13-2025 AST [Catalytic activity/Vol] 20 U/L <32 [facility] - Hematology and Cell countsOrdered By: Sandy Lutz on 02-13-2025 Anisocytosis Ql (Bld) 2+ [facility] Lymphocytes Auto (Unsp spec) [#/Vol]Ordered By: Sandy Lutz on 02-13-2025 Lymphocytes (Bld) [#/Vol] 3.25 10*3/uL 0.83-4.51 [facility] Lymphocytes/100 WBC Auto (Un sp spec)Ordered By: Sandy Lutz on 02-13-2025 Lymphocytes/100 WBC (Bld) 51.8 % High 19-41 [facility] MCV (mean corpuscular volume ) determinationOrdered By: Sandy Lutz on 02-13-2025 MCV (RBC) [Entitic vol] 67.5 fL Low 81-99 [facility] Mean corpuscular hemoglobin (MCH) determinationOrdered By: Sandy Lutz on 02-13-2025 MCH (RBC) [Entitic mass] 18.8 pg Low 27.0-32.0 [facility] Mean corpuscular hemoglobin concentration (MCHC) determinationOrdered By: Sandy Lutz on 02-13-2025 MCHC (RBC) [Mass/Vol] 27.9 g/dL Low 32-36 [facility] Mean platelet volume determi nationOrdered By: Sandy Lutz on 02-13-2025 Mean Platelet Volume [facility] Comment on above: Test not performed Mean platelet volume determination [facility] Comment on above: Test not performed Monocyte percentageOrdered B y: Sandy Lutz on 02-13-2025 Monocytes/100 WBC (Bld) 5.6 % 0-10 [facility] Neutrophil percentageOrdered By: Sandy Lutz on 02-13-2025 Neutrophils/100 WBC (Bld) 41.3 % Low 47-70 [facility] Nucleated red blood cell per centageOrdered By: Sandy Lutz on 02-13-2025 Nucleated RBC/100 WBC (Bld) [Ratio] 0 % 0-5 [facility] Ovalocyte detectionOrdered B y: Sandy Lutz on 02-13-2025 Ovalocytes LM Ql (Bld) 1+ [facility] Ovalocytes LM Ql (Bld)Ordere d By: Sandy Lutz on 02-13-2025 Ovalocytes 1+ [facility] Platelet countOrdered By: Vincent sparrowmartha Bolivar on 02-13-2025 Platelets (Bld) [#/Vol] 124 10*3/uL Low 150-450 [facility] Platelet morphologyOrdered B y: Sandy Lutz on 02-13-2025 Platelet morphology finding Nom (Bld) SD [facility] Platelet morphology finding Nom (Bld)Ordered By: Sandy Lutz on 02-13-2025 Platelet Morphology Comment SD [facility] Platelets reticulated/100 pl atelets Auto (Bld)Ordered By: Sandy Lutz on 02-13-2025 Immature Platelet Fraction 2.2 % 1.0-7.9 [facility] Comment on above: Low PLT + Low IPF mujica ggest a bone marrow production disorderLow PLT + high IPF suggests peripheral destruction(e.g.ITP, TTP, HIT, DIC, autoimmune) or bone marrow recoveryTrending of serial IPF measurements is recommended when evaluating for bone marrow responesValue above normal range indicates an increase in RBC cellular response from bone marrow. Polychromasia LM Ql (Bld)Ord ered By: Sandy Lutz on 02-13-2025 Polychromasia 1+ [facility] Potassium (Unsp spec) [Mass/ Vol]Ordered By: Sandy Lutz on 02-13-2025 Potassium [Moles/Vol] 4.1 mmol/L 3.3-5.1 [facility] Potassium measurement (mass/ volume)Ordered By: Sandy Lutz on 02-13-2025 Potassium (Unsp spec) [Mass/Vol] 4.1 mmol/L 3.3-5.1 [facility] RBC Auto (Bld) [#/Vol]Ordere d By: Sandy Lutz on 02-13-2025 RBC (Bld) [#/Vol] 3.72 10*6/uL Low 4.2-5.[address] [facility] Retic Panelon 02-13-2025 IM RET FRACTION 20.20 High 3.00-15.90 [facility] Comment on above: Performed By: #### L 503.6550, L501.9520, [facility], L500.4050, L100.9950, L100.0100, BTS #### [facility] [address] [place], [place], [id number] IPF 2.2 Normal 1.0-7.9 [facility] Comment on above: Result Comment: Low PLT + Low IPF suggest a bone marrow production disorder Low PLT + high IPF suggests peripheral destruction (e.g.ITP, TTP, HIT, DIC, autoimmune) or bone marrow recovery Trending of serial IPF measurements is recommended when evaluating for bone marrow respones Value above normal range indicates an increase in RBC cellular response from bone marrow. Performed By: #### L 503.6550, L501.9520, BR[facility], L500.4050, L100.9950, L100.0100, BTS #### [facility] [address] [place], [address] RET-HE 17.9 pg Low 30-35 [facility] Comment on above: Performed By: #### L 503.6550, L501.9520, BR[facility], L500.4050, L100.9950, L100.0100, BTS #### [facility] [address] [place], [address] ( Retic Count 1.02 Normal 0.5-1.5 [facility] Comment on above: Performed By: #### L 503.6550, L501.9520, [facility], L500.4050, L100.9950, L100.0100, BTS #### [facility] [address] [facility] [place], [address] Reticulocyte hemoglobin equi valent (RET-He) measurementOrdered By: Sandy Lutz on 02-13-2025 Hemoglobin (Reticulocytes) [Entitic mass] 17.9 pg Low 30-35 [facility] Reticulocytes Auto (Bld) [#/ Vol]Ordered By: Sandy Lutz on 02-13-2025 Reticulocyte Count 1.02 % 0.5-1.5 [facility] Reticulocytes/100 RBC (Bld) 1.02 % 0.5-1.5 [facility] Serum creatinine measurement (mass/volume)Ordered By: Sandy Lutz on 02-13-2025 Creatinine [Mass/Vol] 0.66 mg/dL Low 0.70-1.20 [facility] Serum globulin measurementOr dered By: Sandy Lutz on 02-13-2025 Globulin (S) [Mass/Vol] 3.3 g/dL 2.2-4.2 [facility] Serum glucose measurement (m ass/volume)Ordered By: Sandy Lutz on 02-13-2025 Glucose [Mass/Vol] 86 mg/dL 70-99 [facility] Serum or plasma alanine oleary otransferase (ALT) measurementOrdered By: Sandy Lutz on 02-13-2025 ALT [Catalytic activity/Vol] 14 U/L <35 [facility] Serum or plasma albumin maddi urement (mass/volume)Ordered By: Sandy Lutz on 02-13-2025 Albumin [Mass/Vol] 4.2 g/dL 3.5-5.0 [facility] Serum or plasma albumin/glob ulin mass ratioOrdered By: Sandy Lutz on 02-13-2025 Albumin/Globulin [Mass ratio] 1.3 {ratio} 0.9-2.4 [facility] Serum or plasma alkaline wilberto sphatase measurementOrdered By: Sandy Lutz on 02-13-2025 ALP [Catalytic activity/Vol] 64 U/L 35-104 [facility] Serum or plasma calcium maddi urement (mass/volume)Ordered By: Sandy Lutz on 02-13-2025 Calcium [Mass/Vol] 9.6 mg/dL 7.6-11.0 [facility] Serum or plasma ferritin gui surement (mass/volume)Ordered By: Sandy Lutz on 02-13-2025 Ferritin [Mass/Vol] 4 ng/mL Low 22-[address] [facility] [facility] Serum or plasma urea nitroge n measurement (mass/volume)Ordered By: Sandy Lutz on 02-13-2025 Urea nitrogen [Mass/Vol] 8 mg/dL 4-19 [facility] Sodium levelOrdered By: Landy Lutz on 02-13-2025 Sodium [Moles/Vol] 137 mmol/L 133-145 [facility] TSH DL <= 0.005 mIU/L QnOrde red By: Sandy Lutz on 02-13-2025 Thyroid Stimulating Hormone (TSH) 1.990 uIU/mL 0.300-4.20 0 [facility] TSH Qn 1.990 uIU/mL 0.300-4.20 0 [facility] Thyroid Stim Hormone (TSH)on 02-13-2025 TSH 1.990 uIU/mL Normal 0.300-4.20 0 [facility] Comment on above: Performed By: #### L 503.6550, L501.9520, BRC, L500.4050, L100.9950, L100.0100, BTS #### [facility] [address] [place], [place], [id number] Total proteinOrdered By: Vanna Lutz on 02-13-2025 Protein [Mass/Vol] 7.5 g/dL 5.9-8.4 [facility] Type AND Screenon 02-13-2025 ABO and Rh group Nom (Bld) Blood group O Rh(D) positive Normal [facility] Comment on above: Order Comment: S [id number] UNKNOWN OTHER Performed By: #### L 503.6550, L501.9520, BRC, L500.4050, L100.9950, L100.0100, BTS #### [facility] [address] [place], [place], [id number] White blood cell (WBC) count Ordered By: Sandy Lutz on 02-13-2025 WBC (Bld) [#/Vol] 6.3 10*3/uL 4.4-11.0 [facility] Absolute lymphocyte countOrd ered By: Sandy Lutz on 02-11-2025 Lymphocytes Auto (Unsp spec) [#/Vol] 3.91 10*3/uL 0.83-4.51 [facility] Absolute neutrophil countOrd ered By: Sandy Lutz on 02-11-2025 Neutrophils (Bld) [#/Vol] 2.6 10*3/uL 2.0-7.7 [facility] Automated lymphocyte count a s percentage of total leukocytesOrdered By: Sandy Lutz on 02-11-2025 Lymphocytes/100 WBC Auto (Unsp spec) 55.1 % High 19-41 [facility] Basophil percentageOrdered B y: Sandy Lutz on 02-11-2025 Basophils/100 WBC (Bld) 0.4 % 0-1 [facility] Blood polychromasia detectio n by light microscopyOrdered By: Sandy Lutz on 02-11-2025 Polychromasia LM Ql (Bld) 1+ [facility] CBC W/Diff, Automatedon 01-20 PLT EST SLT DEC Normal ADEQ [facility] Comment on above: Order Comment: Comme nts: call results to provider if HGB <7 Performed By: #### L 100.0100 #### [facility] [address] [place], [address] Anisocytosis Ql (Bld) 2+ Normal [facility] Comment on above: Order Comment: Comme nts: call results to provider if HGB <7 Performed By: #### L 100.0100 #### [facility] [address] [place], [address] HYPOCHROMASIA 2+ Normal [facility] Comment on above: Order Comment: Comme nts: call results to provider if HGB <7 Performed By: #### L 100.0100 #### [facility] [address] [place], [address] POLYCHROMASIA 1+ Normal [facility] Comment on above: Order Comment: Comme nts: call results to provider if HGB <7 Performed By: #### L 100.0100 #### [facility] [address] [place], [address] Eosinophil percentageOrdered By: Sandy Lutz on 02-11-2025 Eosinophils/100 WBC (Bld) 1.4 % 0-5 [facility] Erythrocyte distribution wid th (RBC) [Ratio]Ordered By: Sandy Lutz on 02-11-2025 Erythrocyte distribution width (RBC) [Entitic vol] 50.8 fL High 35.1-43.9 [facility] Erythrocyte distribution wid th ratioOrdered By: Sandy Lutz on 02-11-2025 Erythrocyte distribution width (RBC) [Ratio] 21.0 % High 11.6-14.6 [facility] Erythrocyte distribution wid th standard deviationOrdered By: Sandy Lutz on 02-11-2025 Erythrocyte distribution width (RBC) [Ratio] 50.8 fl High 35.1-43.9 [facility] Hematocrit Auto (Bld) [Volum e fraction]Ordered By: Sandy Lutz on 02-11-2025 Hematocrit (Bld) [Volume fraction] 23.3 % Low 37-47 [facility] Hemoglobin measurementOrdere d By: Sandy Lutz on 02-11-2025 Hemoglobin (Bld) [Mass/Vol] 6.5 g/dL Low 12.0-15.0 [facility] Hypochromatic red blood cell detectionOrdered By: Sandy Lutz on 02-11-2025 Hypochromia Ql (Bld) 2+ [facility] Hypochromia Ql (Bld)Ordered By: Sandy Lutz on 02-11-2025 Hypochromasia 2+ [facility] Immature granulocytes/100 WB C Auto (Bld)Ordered By: Sandy Lutz on 02-11-2025 Immature granulocytes/100 WBC (Bld) 0.100 % 0.0-0.9 [facility] Comment on above: IG% - Immature Granu locytes (promyelocytes, myelocytes and metamyelocytes) > 1% indicates that a LEFT SHIFT is Present. Laboratory - Hematology and Cell countsOrdered By: Sandy Lutz on 02-11-2025 Anisocytosis Ql (Bld) 2+ [facility] Lymphocytes Auto (Unsp spec) [#/Vol]Ordered By: Sandy Lutz on 02-11-2025 Lymphocytes (Bld) [#/Vol] 3.91 10*3/uL 0.83-4.51 [facility] Lymphocytes/100 WBC Auto (Un sp spec)Ordered By: Sandy Lutz on 02-11-2025 Lymphocytes/100 WBC (Bld) 55.1 % High 19-41 [facility] MCV (mean corpuscular volume ) determinationOrdered By: Sandy Lutz on 02-11-2025 MCV (RBC) [Entitic vol] 68.3 fL Low 81-99 [facility] Mean corpuscular hemoglobin (MCH) determinationOrdered By: Sandy Lutz on 02-11-2025 MCH (RBC) [Entitic mass] 19.1 pg Low 27.0-32.0 [facility] Mean corpuscular hemoglobin concentration (MCHC) determinationOrdered By: Sandy Lutz on 02-11-2025 MCHC (RBC) [Mass/Vol] 27.9 g/dL Low 32-36 [facility] Mean platelet volume determi nationOrdered By: Sandy Lutz on 02-11-2025 Platelet mean volume (Bld) [Entitic vol] 9.3 fL 6.2-12.0 [facility] Monocyte percentageOrdered B y: Sandy Lutz on 02-11-2025 Monocytes/100 WBC (Bld) 6.3 % 0-10 [facility] Neutrophil percentageOrdered By: Sandy Lutz on 02-11-2025 Neutrophils/100 WBC (Bld) 36.7 % Low 47-70 [facility] Nucleated red blood cell per centageOrdered By: Sandy Lutz on 02-11-2025 Nucleated RBC/100 WBC (Bld) [Ratio] 0 % 0-5 [facility] Platelet countOrdered By: Vincent Lutz on 02-11-2025 Platelets (Bld) [#/Vol] 127 10*3/uL Low 150-450 [facility] Platelet estimateOrdered By: Sandy Lutz on 02-11-2025 Platelets LM Ql (Bld) SLT DEC ADEQ [facility] Platelets LM Ql (Bld)Ordered By: Sandy Lutz on 02-11-2025 Platelet Estimate SLT DEC ADEQ [facility] Polychromasia LM Ql (Bld)Ord ered By: Sandy Lutz on 02-11-2025 Polychromasia 1+ [facility] RBC Auto (Bld) [#/Vol]Ordere d By: Sandy Bolivar on 02-11-2025 RBC (Bld) [#/Vol] 3.41 10*6/uL Low 4.2-5.[address] [facility] White blood cell (WBC) count Ordered By: Sandy Bolivar on 02-11-2025 WBC (Bld) [#/Vol] 7.1 10*3/uL 4.4-11.0 [facility] Absolute lymphocyte countOrd ered By: Sandy Bolivar on 02-04-2025 Lymphocytes Auto (Unsp spec) [#/Vol] 3.07 10*3/uL 0.83-4.51 [facility] Absolute neutrophil countOrd ered By: Sandy Lutz on 02-04-2025 Neutrophils (Bld) [#/Vol] 2.9 10*3/uL 2.0-7.7 [facility] Automated lymphocyte count a s percentage of total leukocytesOrdered By: Sandy Lutz on 02-04-2025 Lymphocytes/100 WBC Auto (Unsp spec) 46.0 % High 19-41 [facility] Basophil percentageOrdered B y: Sandy Lutz on 02-04-2025 Basophils/100 WBC (Bld) 0.6 % 0-1 [facility] Blood polychromasia detectio n by light microscopyOrdered By: Sandy Lutz on 02-04-2025 Polychromasia LM Ql (Bld) 1+ [facility] CBC W/Diff, Automatedon 01-19 Anisocytosis Ql (Bld) 2+ Normal [facility] Comment on above: Performed By: #### L 100.0100, L503.6030 ####[facility] [address] [place], [address] HYPOCHROMASIA 2+ Normal [facility] Comment on above: Performed By: #### L 100.0100, L503.6030 ####[facility] [address] [place], [address] POLYCHROMASIA 1+ Normal [facility] Comment on above: Performed By: #### L 100.0100, L503.6030 ####[facility] [id number] [place], [address] Calculated total iron bindin g capacityOrdered By: Sandy Lutz on 02-04-2025 Total Iron Binding Capacity 497 ug/dL High 250-450 [facility] Eosinophil percentageOrdered By: Sandy Lutz on 02-04-2025 Eosinophils/100 WBC (Bld) 0.1 % 0-5 [facility] Erythrocyte distribution wid th (RBC) [Ratio]Ordered By: Sandy Lutz on 02-04-2025 Erythrocyte distribution width (RBC) [Entitic vol] 49.8 fL High 35.1-43.9 [facility] Erythrocyte distribution wid th ratioOrdered By: Sandy Lutz on 02-04-2025 Erythrocyte distribution width (RBC) [Ratio] 20.8 % High 11.6-14.6 [facility] Erythrocyte distribution wid th standard deviationOrdered By: Sandy Lutz on 02-04-2025 Erythrocyte distribution width (RBC) [Ratio] 49.8 fl High 35.1-43.9 [facility] Gastroenterology Visit Repor ton 02-04-2025 Gastroenterology Visit Report [facility] [address] [place] [place] [address] OFFICE VISIT Date of Service: 02/04/25 MR#: [id number] Acct: [id number] Name: MARVA RAMESH Rep #: [id number] : 2005 Provider: MIKE muse Age/Sex: 20/F Location: [facility] Status: Signed Intake Vital Signs 02/04/25 11:26 Height 5 ft 5 in Weight: 157 lb 8 oz BMI 26.2 BP 100/68 Respiration 16 Pulse 62 Pulse Oximetry (%) 100 Intake Visit Reasons: blood in stool family history colon cancer Chief Complaint: rectal bleeding Egg Breaker Required: No Is patient in pain?: No Allergies No Known Allergies Allergy (Unverified 02/04/25 11:19) Medications ???Medication ???Instructions ???Recorded ???Confirmed ???Type baobab PO 02/04/25 History fluticasone propionate 50 1 spray intranasal QDAY 02/04/25 0 02/04/25 History mcg/actuation nasal spray,suspension ondansetron HCl 4 mg tablet 4 mg PO Q8H #5 tabs 02/04/2502/04 Rx sodium sul 1.479 gram-potas ch See Rx Instructions PO PER PKG DIR 02/04/25 02/04/25 Rx 0.188 gram-magnes sul 0.225 gram #24 tabs tablet (Sutab) PFSH Medical History Esophageal obstruction due to food impaction Bulimia Hives Emotional problems Bone fracture Anemia Seasonal allergies Surgical History H/O hernia repair Family History Father Colon cancer Mother Depression Grandfather Diabetes Social History current occupational status: student Smoking Status: Never smoker alcohol intake: never substance use type: does not use what type of physical activity do you participate in: walking, running and weight training frequency: 5-6 times per week additional social history: student from [employer] HPI HPI Chief Complaint: rectal bleeding Details: MARVA RAMESH, is a 20 F who presents to the office today for BRBPR 3 episodes, started last Saturday - hard stools and straining with BM - mild abdominal discomfort - dull RUQ pain and occasional sharp LLQ pain - she has a BM Once every 3-5 days - abdominal discomfort improves with a BM - c/o bloating - Father with colon cancer 45y/o - Paternal GF with colon CA at 65y/o - she is eating 3 meals a day - she is pescatarian??? - a lot of vegetables, beans and rice - water intake is good - reports last labs showed anemia - regular menstrual cycles - have been heavy and now 6d instead of 2-3d, every 28d, LMP 20 days ago - cramping with menses - worsening with bloating - reports when in [employer] [facility] [employer] she had an US which they thought maybe showed a uterine cyst - Baobab fruit from the tree of life - powder supplement - helps with bloating/inflammation ROS Const Constitutional: Positive for fatigue; No fever(s) or weight change ENT ENT: No difficulty swallowing Gastro GI: Positive for abdominal pain, bloating and Blood in stool; No belching, change in bowel habits, change in stool character, coffee ground emesis, constipation, cramping, diarrhea, heartburn, difficulty swallowing, feeling full early, excessive flatus, incontinent of stools, Vomiting blood/hematemesis, loose stools, Black,tarry stools, nausea/dyspepsia, pain with swallowing, vomiting or other Musc Musculoskeletal: Positive for joint pain, joint swelling, numbness and tingling Skin Skin: No yellowing of the eye or itchy eyes Neuro Neurology: Positive for numbness and tingling Psych Psychiatric: Positive for anxiety, Positive for depression, Positive for paranoia, Positive for Compulsive Behavior, Positive for hyperactivity, Positive for inattentiveness and Positive for obsessions/compulsions Endo Endocrine: Positive for fatigue; No weight change Aller/Imm Allergy/Immunologic: No itchy eyes Joo/Lymp Hematologic/Lymphatic: No easy bleeding or easy bruising Exam Const General: cooperative, healthy appearing, no acute distress and well developed Nutritional Appearance: average body habitus and well nourished Orientation: alert and oriented x3 HENMT Head: normocephalic Ears: hearing grossly normal bilaterally Mouth: moist mucous membranes Teeth and gingiva: dentition normal Eyes Conjunctivae: conjunctivae normal Sclera: sclerae normal Neck Neck: normal visual inspection, full ROM and trachea midline Resp Effort Inspection: normal respiratory effort, able to speak in complete sentences and symmetric chest movement Auscultation: Bilateral: Clear to Auscultation Cardio Palpation: normal PMI Rate: regular rate Rhythm: regular rhythm Heart Sounds: S1 normal and S2 normal GI Inspection: normal to inspectio (more content not included)... Normal [facility] Hematocrit Auto (Bld) [Volum e fraction]Ordered By: Sandy Lutz on 02-04-2025 Hematocrit (Bld) [Volume fraction] 24.6 % Low 37-47 [facility] Hemoglobin measurementOrdere d By: Sandy Lutz on 02-04-2025 Hemoglobin (Bld) [Mass/Vol] 6.8 g/dL Low 12.0-15.0 [facility] Hypochromatic red blood cell detectionOrdered By: Sandy Lutz on 02-04-2025 Hypochromia Ql (Bld) 2+ [facility] Hypochromia Ql (Bld)Ordered By: Sandy Lutz on 02-04-2025 Hypochromasia 2+ [facility] Immature granulocytes/100 WB C Auto (Bld)Ordered By: Sandy Lutz on 02-04-2025 Immature granulocytes/100 WBC (Bld) 0.300 % 0.0-0.9 [facility] Comment on above: IG% - Immature Granu locytes (promyelocytes, myelocytes and metamyelocytes) > 1% indicates that a LEFT SHIFT is Present. Iron (Unsp spec) [Mass/Mass] Ordered By: Sandy Lutz on 02-04-2025 Iron [Mass/Vol] 11 ug/dL Low 50-170 [facility] Iron measurement (mass/mass) Ordered By: Sandy Lutz on 02-04-2025 Iron (Unsp spec) [Mass/Mass] 11 ug/dL Low 50-170 [facility] Iron saturation [Mass fracti on]Ordered By: Sandy Lutz on 02-04-2025 Iron Saturation 2.2 % Low 13-59 [facility] Comment on above: Previous reported re sult: 2.0 %Edited by: DONA on 02/04/25:1404 AMENDED REPORT 02/04/25 1404 IRON SATURATION previously reported as: 2.0 L % Iron+Iron Binding Capacityon 02-04-2025 TIBC 497 ug/dL High 250-450 [facility] Comment on above: Performed By: #### L 100.0100, L503.6030 ####[facility] [address] [place], [address] Laboratory - Hematology and Cell countsOrdered By: Sandy Lutz on 02-04-2025 Anisocytosis Ql (Bld) 2+ [facility] Lymphocytes Auto (Unsp spec) [#/Vol]Ordered By: Sandy Lutz on 02-04-2025 Lymphocytes (Bld) [#/Vol] 3.07 10*3/uL 0.83-4.51 [facility] Lymphocytes/100 WBC Auto (Un sp spec)Ordered By: Sandy Lutz on 02-04-2025 Lymphocytes/100 WBC (Bld) 46.0 % High 19-41 [facility] MCV (mean corpuscular volume ) determinationOrdered By: Sandy Lutz on 02-04-2025 MCV (RBC) [Entitic vol] 67.6 fL Low 81-99 [facility] Mean corpuscular hemoglobin (MCH) determinationOrdered By: Sandy Lutz on 02-04-2025 MCH (RBC) [Entitic mass] 18.7 pg Low 27.0-32.0 [facility] Mean corpuscular hemoglobin concentration (MCHC) determinationOrdered By: Sandy Lutz on 02-04-2025 MCHC (RBC) [Mass/Vol] 27.6 g/dL Low 32-36 [facility] Mean platelet volume determi nationOrdered By: Sandy Lutz on 02-04-2025 Platelet mean volume (Bld) [Entitic vol] 9.6 fL 6.2-12.0 [facility] Monocyte percentageOrdered B y: Sandy Lutz on 02-04-2025 Monocytes/100 WBC (Bld) 9.0 % 0-10 [facility] Neutrophil percentageOrdered By: Sandy Lutz on 02-04-2025 Neutrophils/100 WBC (Bld) 44.0 % Low 47-70 [facility] No Panel InformationOrdered By: Sandy Lutz on 02-04-2025 Unsaturated Iron Binding Capacity 486 ug/dL High 228-428 [facility] Nucleated red blood cell per centageOrdered By: Sandy Lutz on 02-04-2025 Nucleated RBC/100 WBC (Bld) [Ratio] 0 % 0-5 [facility] Platelet countOrdered By: Vincent Lutz on 02-04-2025 Platelets (Bld) [#/Vol] 395 10*3/uL 150-450 [facility] Polychromasia LM Ql (Bld)Ord ered By: Sandy Lutz on 02-04-2025 Polychromasia 1+ [facility] RBC Auto (Bld) [#/Vol]Ordere d By: Sandy Lutz on 02-04-2025 RBC (Bld) [#/Vol] 3.64 10*6/uL Low 4.2-5.[address] [facility] Serum or plasma iron saturat ion measurement (mass fraction)Ordered By: Sandy Lutz on 02-04-2025 Iron saturation [Mass fraction] 2.2 % Low 13-59 [facility] Comment on above: Previous reported re sult: 2.0 %Edited by: DONA on 02/04/25:1404 AMENDED REPORT 02/04/25 1404 IRON SATURATION previously reported as: 2.0 L % White blood cell (WBC) count Ordered By: Sandy Lutz on 02-04-2025 WBC (Bld) [#/Vol] 6.7 10*3/uL 4.4-11.0 [facility] Vital Signs Date Time Vital Sign Value Performing Clinician Faci lity 02-25-2025 13:40-0400 Body temperature 97.9 [degF] No Primary Care Physician [facility] 02-25-2025 13:40-0400 Diastolic blood pressure 61 mm[Hg] No Primary Care Physician [facility] 02-25-2025 13:40-0400 Heart rate 62 /min No Primary Care Physician [facility] 02-25-2025 13:40-0400 Respiratory rate 12 /min No Primary Care Physician [facility] 02-25-2025 13:40-0400 SaO2% (BldA) [Mass fraction] 98 % No Primary Care Physician [facility] 02-25-2025 13:40-0400 Systolic blood pressure 99 mm[Hg] No Primary Care Physician [facility] 02-25-2025 10:52-0400 Body height 160.02 cm No Primary Care Physician [facility] 02-25-2025 10:52-0400 Body mass index (BMI) [Ratio] 27.7 kg/m2 No Primary Care Physician [facility] 02-25-2025 10:52-0400 Body weight 71 kg No Primary Care Physician [facility] 02-15-2025 14:15-0400 Diastolic blood pressure 69 mm[Hg] No Primary Care Physician [facility] 02-15-2025 14:15-0400 Heart rate 69 /min No Primary Care Physician [facility] 02-15-2025 14:15-0400 Respiratory rate 14 /min No Primary Care Physician [facility] 02-15-2025 14:15-0400 SaO2% (BldA) [Mass fraction] 100 % No Primary Care Physician [facility] 02-15-2025 14:15-0400 Systolic blood pressure 119 mm[Hg] No Primary Care Physician [facility] 02-15-2025 12:58-0400 Body temperature 98 [degF] No Primary Care Physician [facility] 02-15-2025 11:27-0400 Body height 165.1 cm No Primary Care Physician [facility] 02-15-2025 11:27-0400 Body mass index (BMI) [Ratio] 25.7 kg/m2 No Primary Care Physician [facility] 02-15-2025 11:27-0400 Body weight 70.3 kg No Primary Care Physician [facility] 02-04-2025 11:26-0400 Body mass index (BMI) [Ratio] 26.2 kg/m2 No Primary Care Physician [facility] 02-04-2025 11:26-0400 Body weight 71.44 kg No Primary Care Physician [facility] 02-04-2025 11:26-0400 Diastolic blood pressure 68 mm[Hg] No Primary Care Physician [facility] 02-04-2025 11:26-0400 Heart rate 62 /min No Primary Care Physician [facility] 02-04-2025 11:26-0400 Respiratory rate 16 /min No Primary Care Physician [facility] 02-04-2025 11:26-0400 SaO2% (BldA) [Mass fraction] 100 % No Primary Care Physician [facility] 02-04-2025 11:26-0400 Systolic blood pressure 100 mm[Hg] No Primary Care Physician [facility] Encounters Encounter Date Encounter Type Care Provider Facility Start: 03-16-2025 End: 05-16-2025 Follow-up encounter Glory Domingo RN OB/Gynecology Start: 03-11-2025 End: 03-11-2025 ambulatory SANDY STINSON Facility:[facility] Start: 03-08-2025 End: 03-08-2025 Patient encounter procedure Sandy MCKEON -[facility] Work Phone: Start: 03-08-2025 End: 03-09-2025 ambulatory No Primary Care Physician [facility] Work Phone: Start: 03-04-2025 Encounter for other preprocedural examination Balwinder Caldwell [facility] Start: 03-01-2025 End: 03-02-2025 Telephone encounter Poornima Adhikari APRN.[employer] Work Phone: OB/Gynecology Comment on above: Patient Question Start: 02-25-2025 ambulatory No Primary Car e Physician [place] [place]: 02-25-2025 Non-patient / Non-visit Balwinder Orta nd DO -[facility] Start: 02-25-2025 End: 02-25-2025 Admission to same day surgery center Balwinder Javi -Endoscopy Work Phone: Start: 02-25-2025 End: 02-25-2025 ambulatory No Primary Care Physician [facility] Work Phone: Start: 02-15-2025 End: 02-15-2025 Patient encounter procedure Sadny MCKEON -Medical Out Work Phone: Start: 02-15-2025 End: 02-15-2025 ambulatory Sandy Lutz Facility:[facility] Start: 02-15-2025 End: 02-15-2025 Patient encounter procedure Sandy MCKEON -Ultrasound, [facility] Work Phone: Start: 02-15-2025 End: 02-15-2025 ambulatory Sandy Lutz Facility:[facility] Start: 02-11-2025 End: 02-11-2025 ambulatory No Primary Care Physician [facility] Work Phone: Start: 02-11-2025 End: 02-11-2025 Patient encounter procedure Sandy MCKEON -Laboratory Work Phone: Start: 02-11-2025 End: 02-11-2025 ambulatory Sandy Lutz Facility:[facility] Start: 02-04-2025 End: 02-04-2025 Patient encounter procedure Sandy MCKEON -Laboratory Work Phone: Start: 02-04-2025 End: 02-04-2025 Patient encounter procedure Sandy MCKEON -[facility] Work Phone: Start: 02-04-2025 End: 02-04-2025 ambulatory Sandy Lutz Facility:[facility] Start: 02-04-2025 End: 02-04-2025 ambulatory Sandy Lutz Facility:[facility] Procedures Date Procedure Procedure Detail Performing Clinician Start: 02-25-2025 Colonoscopy No Primary Care Physician Start: 02-15-2025 Ultrasonography of abdomen No Primary Care Physician Start: 02-13-2025 Immature reticulocyt e fraction No Primary Care Physician Start: 02-04-2025 Total iron binding c apacity measurement No Primary Care Physician Plan of Treatment Date Care Activity Detail Author Start: 06-21-2025 Influenza vaccination Influenza Vaccine (#1) [facility] Start: 02-25-2025 Colonoscopy flx dx w/collj spec when pfrmd DIAGNOSTIC COLONOSCOPY [facility] Start: 02-25-2025 Patient discharge [facility] Start: 02-15-2025 Administration of blood product [facility] Start: 02-15-2025 [facility] Start: 02-04-2025 Patient referral [facility] Work Phone: Start: 02-04-2025 Screening for malignant neoplasm of cervix Cervical Cancer Screening [facility] Start: 02-04-2023 Hepatitis B Vaccine (1 of 3 - 19+ 3-dose series) Hepatitis B Vaccine (1 of 3 - 19+ 3-dose series) [facility] Start: 02-04-2023 Urine microalbumin profile DTaP,Tdap,Td Vaccine (1 - Tdap) [facility] Start: 02-04-2022 Anxiety Screening Anxiety Screening [facility] Start: 02-04-2022 Depression Screening Depression Screening [facility] Start: 02-04-2022 GC (Gonorrhea) Screening (18-24) GC (Gonorrhea) Screening (18-24) [facility] Start: 02-04-2022 Hepatitis C screening Hepatitis C Screening [facility] Start: 02-04-2022 HIV screening HIV Screening [facility] Start: 02-04-2022 Screening for Chlamydia trachomatis Chlamydia Screening (18-24) [facility] Start: 2020 Meningococcal B Vaccine (1 of 2 - Standard) Meningococcal B Vaccine (1 of 2 - Standard) [facility] Start: 02-04-2019 HPV Vaccine (1 - 3-dose series) HPV Vaccine (1 - 3-dose series) [facility] Start: 02-04-2018 Peds To Adult Transition Annual Assessment Peds To Adult Transition Annual Assessment [facility] Start: 2016 Peds To Adult Transition Initial Discussion Peds To Adult Transition Initial Discussion [facility] CBC W Auto Different ial panel - Blood [facility] Ferritin [Mass/volum e] in Serum or Plasma [facility] IgA [Mass/volume] in Serum or Plasma [facility] Iron and Iron bindin g capacity panel - Serum or Plasma [facility] Patient referral [facility] Work Phone: Tissue transglutamin ase IgA Ab [Units/volume] in Serum [facility] Payers Date Payer Category Payer Private Health Insurance [facility] Address: [facility] [id number] [place] [id number] 2025 Private Health Insurance [id number] 2025 Self-pay 2025 Unknown [id number] Unknown [id number] Unknown [id number] Unknown [id number] Unknown [id number] Unknown [id number] Unknown [id number] Unknown [id number] Unknown [id number] Unknown [id number] Social History Date Type Detail Facility Start: 02-04-2025 End: 02-24-2025 Tobacco smoking status NHIS Never smoked tobacco (finding) [facility] Start: 02-16-2025 Sex Female (finding) [facility] Start: 2005 Sex Assigned At Female [facility] Gender Identity Identifies as fe male gender (finding) [facility] Tobacco smoking status WIIS Tobacco smoking consumption unknown [facility] Work Phone: Start: 2005 Sex assigned at Not on file [facility] NEGATED: Highlighted row Not [facility] Goals Date Patient Goal Desired Activity /State Mental Status Date Assessment Result Facility 02-25-2025 Cognitive function Level Of Consciousness Drowsy [facility] Work Phone: 02-25-2025 Cognitive function Voice/Name [facility] Work Phone: 02-15-2025 Cognitive function Voice/Name [facility] Work Phone: Clinical Notes 02-04-2025 to 03-11-2025 Telephone Encounter - Xiao Diaz RN - 03/02/2025 9:21 AM EDTTelephone Encounter - Poornima Adhikari APRN.CNP - 03/01/2025 6:39 PM EDTTelephone Encounter - Sue Conway - 03/01/2025 2:27 PM EDT Note Date & Type Note Facility 03-11-2025 Note HNO ID: [id number] Author: GEETHA GARNER MD Service: ? Author Type: Physician Type: Progress Notes Filed: 03/11/2025 21:44 Note Text: The patient presents for requested ultrasound. Full report available in the Imaging tab in [facility]. Geetha Garner MD [facility] 03-02-2025 Miscellaneous Notes Formattin g of this note might be different from the original. There is a referral and pelvic u/s order from [facility] scanned in [facility] and they did try calling her yesterday morning to schedule. Spoke to YEYO Holliday and she will contact patient to schedule pelvic u/s. Xiao Diaz RN [facility] should have faxed order for pelvic US and pt information for [facility]SR. I will follow-up tomorrow. Poornima Adhikari APRN.CNP Is this a [facility] student? Glory Domingo RN Patient called said she was seen by Hipolito Edwards needed us and to follow up and but I don't see anything for patient Please advise documented in this encounter [facility] 03-02-2025 Telephone encount er Note There is a referral and pelvic u/s order from [facility] scanned in [facility] and they did try calling her yesterday morning to schedule. Spoke to YEYO Holliday and she will contact patient to schedule pelvic u/s. Xiao Diaz RN [facility] 03-01-2025 Telephone encount er Note [facility] should have faxed order for pelvic US and pt information for PSR. I will follow-up tomorrow. Poornima Adhikari APRN.MEDIEVAL ENGLISH LITERATURE PROFESSOR [facility] Work Phone: 03-01-2025 Telephone encount er Note Is this a [facility] student? Glory Domingo RN [facility] 03-01-2025 Telephone encount er Note Patient called said she was seen by Hipolito Edwards needed us and to follow up and but I don't see anything for patient Please advise [facility] 02-25-2025 History and physical note Note Date/Time February 25, 2025 12:10pm [facility] Medical Records Department [address] [place] [address] History & Physical Exam 02/25/25 1208 MR#: [id number] Acct: [id number] Name: MARVA RAMESH Rep #:[id number] : 2005 20 From: Balwinder Friend DO PCP: Care Physician,No [place] [facility] [place] [id number] HPI - General General Date of Admission: 02/25/25 Date of Service: 02/25/25 Chief Complaint: Gi bleeding HPI Narrative MARVA RAMESH, is a 20 F who presents with the Chief Complaint of anemia and rectal bleeding BRBPR 3 episodes, started last Saturday - hard stools and straining with BM - mild abdominal discomfort - dull RUQ pain and occasional sharp LLQ pain - she has a BM Once every 3-5 days - abdominal discomfort improves with a BM - c/o bloating - Father with colon cancer 45y/o - Paternal GF with colon CA at 65y/o - she is eating 3 meals a day - she is pescatarian? - a lot of vegetables, beans and rice - water intake is good - reports last labs showed anemia - regular menstrual cycles - have been heavy and now 6d instead of 2-3d, every 28d, LMP 20 days ago - cramping with menses - worsening with bloating - reports when in [facility] she had an US which they thought maybe showed a uterine cyst - Baobab fruit from the tree of life - powder supplement - helps with bloating/inflammation L PFSH Medical History Wears glasses Depression Anxiety Easy bruising Migraine headache Vasovagal episode Constipation Rectal bleeding Non-smoker Asthma Shortness of breath on exertion Leg cramps History of pain when walking History of edema Chest pain Bulimia Hives Emotional problems Bone fracture Anemia Seasonal allergies Home Medications ?Medication ?Instructions ?Recorded ?Last Taken ?Type fluticasone propionate 50 1 spray intranasal QDAY 01/19 05/14 Unknown History mcg/actuation nasal spray,suspension Allergy/AdvReac Type Severity Reaction Status Date / Time lactose (lactose intolerant) AdvReac Intermediate Nausea/Vom/ Verified 02/25/25 10:48 Diarrhea Family History Father Colon cancer Mother Depression Grandfather Diabetes Surgical History History of esophagogastroduodenoscopy (EGD) H/O hernia repair Social History current occupational status: student Smoking Status: Never smoker alcohol intake: never substance use type: does not use what type of physical activity do you participate in: walking, running and weight training frequency: 5-6 times per week additional social history: student from [employer] ROS Constitutional Constitutional: Denies fatigue, fever(s), poor appetite, weight gain or weight loss Gastrointestinal Gastrointestinal: Denies belching, bloating, change in bowel habits, change in stool character, chewing difficulty, coffee ground emesis, constipation, cramping, diarrhea, dyspepsia, dysphagia, early satiety, excessive flatus, fecalincontinence, heartburn, hematemesis, hematochezia, hemorrhoids, loose stools, melena, nausea, odynophagia, rectal bleeding, tenesmus, vomiting or weight changes Vital Signs Vital Signs Vital Signs: 02/25/25 10:52 02/25/25 10:52 02/25/25 12:03 Temperature 98.4 F 98.4 F Temperature Source Temporal Pulse Rate 60 60 Respiratory Rate 16 16 Respiratory Pattern Normal Blood Pressure 100/62 100/62 Blood Pressure Mean 74 Blood Pressure Source Monitor Blood Pressure Position Semi-Fowlers Blood Pressure Location Left Arm Pulse Ox 100 100 Oxygen Delivery Method Room Air Room Air Weight Weight: 156 lb 8.451 oz Body Mass Index (BMI) 27.7 Physical Exam Const alert, oriented x3, no apparent distress and healthy appearing General Appearance: cooperative GI normal to inspection, nondistended, normoactive bowel sounds, soft to palpation,non-tender and non-distended Percussion: normal to percussion Rectal Exam: deferred Results Lab / Micro Data 02/25/25 10:54 Labs: Laboratory Results - last 24 hr 02/25/25 10:54: WBC 8.0, RBC 4.00 L, Hgb 8.1 L, Hct 27.9 L, MCV 69.8 L, MCH 20.3L, MCHC 29.0 L, RDW Std Deviation 56.6 H, RDW Coeff of Saroj 23.3 H, Plt Count 838H*, MPV 9.4, Differential Comment , Diff Path Review February, Urine Test Negative Assessment & Plan Assessment/Plan (1) Iron deficiency anemia: (2) Rectal bleeding: (3) RUQ pain: (4) LLQ pain: PLAN: Assessment and Plan Assessment and Plan (1) Bloating: Status: Acute (2) Rectal bleeding: Status: Acute (3) RUQ pain: Status: Acute (4) LLQ pain: Status: Acute (5) Family history of colon cancer: Status: Acute (6) Heavy menstrual bleeding: Status: Acute Orders: Orders CBC W/Diff, Automated Today K62.5 - Hemorrhage of anus and rectum, R10.11 - Right upper quadrant pain, R10.32 - Left lower quadrant pain, R14.0 - Abdominal distension (gaseous), Z80.0 - Family history of malignant neoplasm of digestive organs Iron+Iron Binding Capacity Today K62.5 - Hemorrhage of anus and rectum, R10.11 - Right upper quadrant pain, R10.32 - Left lower quadrant pain, R14.0 - Abdominal distension (gaseous), Z80.0 - Family history of malignant neoplasm of digestive organs Abdomen Limited Today K62.5 - Hemorrhage of anus and rectum, R10.11 - Right upper quadrant pain, R10.32 - Left lower quadrant pain, R14.0 - Abdominal distension (gaseous), Z80.0 - Family history of malignant neoplasm of digestive organs Referrals [employer] N92.0 - Excessive and frequent menstruation with regular cycle, R10.32 - Left lower quadrant pain Medications: New sod sulf-pot chloride-mag sulf 1.479-0.188- 0.225 gram (Sutab) as directed for split dose bowel prep 24 tabs 0RF ondansetron HCl take two tablets PO two hours prior to start of bowel prep and one every 4 hours as needed for N/V 4 mg PO Q8H 5 tabs 0RF Plan 20-year-old female presents for initial consultation with complaints of rectal bleeding, abdominal pain and bloating. Family history is significant for fatherwith colon cancer at 45 years old and paternal grandfather. Abdominal exam reveals mild RUQ, epigastric and LLQ abdominal discomfort with palpation. I have ordered labs, abdominal ultrasound and colonoscopy. She reports a change in menstrual cycles with heavy menses, increase in duration and abdominal cramping [place]. She will complete labs today. I have recommended she complete an ABD US and colonoscopy. She will follow-up in the office post procedure. 02/25/25 1210 <Electronically signed by Balwinder Caldwell DO> Cosigner Signature (if applicable): CC: No Primary Care Physician; Balwinder Caldwell DO~ Signed [facility] Work Phone: 1(405) 691-165605-08-2025 Consult note Author Dani Carpenter [facility] Note Date/Time February 25, 2025 12:03p m [facility] Medical Records Department [address] [place] [address] Pre-Anesthesia Evaluation 02/25/25 1150 MR#: [id number] Acct: [id number] Name: MARVA RAMESH Rep #:[id number] : 2005 20 From: Dani Carpenter MD PCP: Care Physician,No Primary Status :REG [facility] Y Race: AA Location: [place] [address] ASA Classification* ASA Classification ASA Classification: 2 Assessment & Plan Anesthesia* Anesthesia Assessment Anesthesia Assessment: Discussed sedation and/or anesthesia options, risks, benefits, and alternatives with patient/parents/legal guardian/POA. Questions invited. The patient/parents/legal guardian/POA seems to understand and agrees to proceedwith anesthesia plan. Reviewed the physical assessment, medical history, allergy history and patient home medications list prior to surgery/procedure/anesthetic and documented any changes. Performed airway and anesthesia risk assessments. Anesthesia Type Anesthesia Type: MAC History Source History Obtained from:: Patient and Chart Anesthesia Focused Assessment* Temperature: 98.4 F Pulse Rate: 60 Blood Pressure: 100/62 Respiratory Rate: 16 Pulse Ox: 100 Oxygen Delivery Method: Room Air Airway Assessment Mouth opens: >3 cm Mallampati Score: III Teeth Condition: Intact Neck Range of motion (ROM): Full ROM Focused Labs Anesthesia Preop lab: CBC WBC 6.3 K/mm3 (4.4-11.0) 02/13/25 08:37 02/13/25 RBC 3.72 M/mm3 (4.2-5.4) L 02/13/25 08:37 02/13/25 Hgb 7.0 g/dL (12.0-15.0) L 02/13/25 08:37 02/13/25 Hct 25.1 % (37-47) L 02/13/25 08:37 02/13/25 Plt Count 124 K/mm3 (150-450) L 02/13/25 08:37 02/13/25 CHEMISTRY Potassium 4.1 mmol/L (3.3-5.1) 02/13/25 08:37 02/13/25 Sodium 137 mmol/L (133-145) 02/13/25 08:37 02/13/25 BUN 8 mg/dL (4-19) 02/13/25 08:37 02/13/25 Creatinine 0.66 mg/dL (0.70-1.20) L 02/13/25 08:37 Glucose 86 mg/dL (70-99) 02/13/25 08:37 02/13/25 TSH 1.990 uIU/mL (0.300-4.200) 02/13/25 08:37 0404/14 COAG Urine Test Pending 02/25/25 10:54 02/25/25 Pre-Assessment Diagnosis/Proposed Procedure Planned Operative Procedure(s): CSCOPE Anesthesia History Anesthesia History - safety leader: Anesthesia History - safety leader Hx Hospitalization No 02/24/25 09:27 Any Problems With Anesthesia No 02/24/25 09:27 Cholinesterase deficiency No 02/24/25 09:27 You/Your Family Experience No 02/24/25 09:27 fever (hyperthermia) with Relationship Recent Exposure to Contagious No 02/25/25 10:52 Disease Does patient have nerve No 02/24/25 09:27 stimulator Patient instructed to have device shut off --Does patient have Pacemaker No 02/25/25 10:52 or ICD? When Was Last Pacemaker Check QUESTION #4 FULL TEXT: You/Your Family Experience fever (hyperthermia) with Anesthesia Last Oral Intake Last Oral intake: Last Oral Intake NPO since 09:14 02/25/25 10:52 Meds taken in AM with sips of water? Meds patient instructed to take am of surgery Any additional information?: Yes NPO since: 09:14 (Patient water at 9:14 AM.) Meds taken in AM with sips of water?: Yes PONV PONV - safety leader: PONV - safety leader Female Yes 02/24/25 09:27 HX of Motion Sickness No 02/24/25 09:27 HX of N/V After Surgery No 02/24/25 09:27 Non-Smoker Yes 02/24/25 09:27 Duration of Surgery greater No 02/24/25 09:27 than 60 minutes Number of Risk Factors 2 02/24/25 09:27 PONV Score Moderate Risk 02/24/25 09:27 Height & Weight Height & Weight: Anesthesia: Height & Weight Height 5 ft 3 in 02/25/25 10:52 Weight: 71 kg 02/25/25 10:52 Body Mass Index (BMI) 27.7 02/25/25 10:52 Respiratory Assessment Respiratory Assessment - safety leader: Respiratory Tract Infection Hx - safety leader Hx Respiratory Tract Infection Yes: ALLERGY COLD/NO FEVER 02/24/25 09:27 Patient had a fever last week after a blood transfusion. It was short-lived. No respiratory symptoms. STOP Sleep Apnea STOP Sleep Apnea - safety leader: STOP Sleep Apnea - safety leader Hx Hypertension No 02/24/25 09:27 Hx Sleep Apnea No 02/24/25 09:27 CPAP BIPAP Do you snore loudly (louder No 02/24/25 09:27 than talking or can be heard Do you often feel tired/ Yes 02/24/25 09:27 fatigued/ sleepy during daytime? Has anyone observed you stop No 02/24/25 09:27 breathing during sleep? STOP Results Negative 02/24/25 09:27 QUESTION #5 FULL TEXT : Do you snore loudly (louder than talking or can be heard through closed doors)? 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 Specify any problems FEVER,HANDS TURNED PURPLE 02/24/25 09:27 FOR 4 DAYS Hx of Preganancy in last 3 No 02/24/25 09:27 Months Nurse Filling Out Transfusion DSCHRIBER 02/24/25 09:27 & Questions: Date: 02/24/25 02/24/25 09:27 Time: 02/24/25 09:27 Patient unable to answer at this time (ie. confused, unrespo /Reproduction History /Reproductive History - safety leader: /Reproductive Hx- safety leader Hx Now No 02/24/25 09:27 Gestational Age (in weeks): EDC: Hx Hx Para Hx Section SAB No 02/24/25 09:27 Active Medications Active Medications: Current Medications Generic Name Dose Route Start Last Admin Trade Name Freq PRN Reason Stop Dose Admin Lactated Ringer's 1,000 mls @ 15 mls/hr 02/25/25 10:30 02/25/25 11:14 IV 15 mls/hr .Q48H ALICJA Administration PFSH Medical History Wears glasses Depression Anxiety Easy bruising Migraine headache Vasovagal episode Constipation Rectal bleeding Non-smoker Asthma Shortness of breath on exertion Leg cramps History of pain when walking History of edema Chest pain Bulimia Hives Emotional problems Bone fracture Anemia Seasonal allergies Home Medications ?Medication ?Instructions ?Recorded ?Last Taken ?Type fluticasone propionate 50 1 spray intranasal QDAY 01/19 05/14 Unknown History mcg/actuation nasal spray,suspension Allergy/AdvReac Type Severity Reaction Status Date / Time lactose (lactose intolerant) AdvReac Intermediate Nausea/Vom/ Verified 02/25/25 10:48 Diarrhea Family History Father Colon cancer Mother Depression Grandfather Diabetes Surgical History History of esophagogastroduodenoscopy (EGD) H/O hernia repair Social History current occupational status: student Smoking Status: Never smoker alcohol intake: never substance use type: does not use what type of physical activity do you participate in: walking, running and weight training frequency: 5-6 times per week additional social history: student from [employer] Review of Systems (Anesthesia) ROS Narrative System reviewed and no additional complaints, except as documented. 02/25/25 1203 <Electronically signed by Dani san MD> Date _ Dani Carpenter MD Cosigner Signature: Date CC: ~ Signed [facility] Work Phone: 1(936) 907-230805-08-2025 Procedure note [facility] Medical Records Department [address] [place] [address] Colonoscopy Report MR#: [id number] Acct: [id number] Name: MARVA RAMESH Rep #:[id number] : 2005 20 From: Balwinder Caldwell DO PCP: Care Physician,No [place] [facility] [place] Patient Name: Marva Ramesh Procedure Date: 02/25/2025 12:08 PM Date of : 2005 Age: 20 Procedure: Colonoscopy Indications: Iron deficiency anemia Providers: Balwinder Caldwell DO Referring MD: No Primary Care Physician Medicines: Monitored Anesthesia Care Patient Profile: This is a 20 year old female. Refer to note in patient chart for documentation of history and physical. Last Colonoscopy: none. The patient's first colonoscopy is today. Complications: No immediate complications. Procedure: Pre-Anesthesia Assessment: - Prior to the procedure, a History and Physical was performed, and patient medications and allergies were reviewed. The patient is competent. The risks and benefits of the procedure and the sedation options and risks were discussed with the patient. All questions were answered and informed consent was obtained. Patient identification and proposed procedure were verified by the physician in the pre-procedure area. Mental Status Examination: alert and oriented. Airway Examination: normal oropharyngeal airway and neck mobility. Respiratory Examination: clear to auscultation. CV Examination: normal. Prophylactic Antibiotics: The patient does not require prophylactic antibiotics. Prior Anticoagulants: The patient has taken no anticoagulant or antiplatelet agents. ASA Grade Assessment: II - A patient with mild systemic disease. After reviewing the risks and benefits, the patient was deemed in satisfactory condition to undergo the procedure. The anesthesia plan was to use moderate sedation / analgesia (conscious sedation). Immediately prior to administration of medications, the patient was re-assessed for adequacy to receive sedatives. The heart rate, respiratory rate, oxygen saturations, blood pressure, adequacy of pulmonary ventilation, and response to care were monitored throughout the procedure. The physical status of the patient was re-assessed after the procedure. After I obtained informed consent, the scope was passed under direct vision. Throughout the procedure, the patient's blood pressure, pulse, and oxygen saturations were monitored continuously. The pediatric colonoscope was introduced through the anus and advanced to the terminal ileum. The colonoscopy was performed without difficulty. The patient tolerated the procedure well. The quality of the bowel preparation was adequate. The terminal ileum, ileocecal valve, appendiceal orifice, and rectum were photographed. Scope In: 12:21:32 PM Scope Withdrawal Time 0 hours 6 minutes 45 seconds Scope Out: 12:50:17 PM Total Procedure Duration Time 0 hours 28 minutes 45 seconds Findings: The perianal and digital rectal examinations were normal. The colon (entire examined portion) appeared normal. The terminal ileum appeared normal. Non-bleeding internal hemorrhoids were found during retroflexion. The hemorrhoids were small and Grade I (internal hemorrhoids that do not prolapse). Impression: - The entire examined colon is normal. - The examined portion of the ileum was normal. - No specimens collected. Recommendation: - Discharge patient to home. - Resume previous diet. - Continue present medications. - Repeat colonoscopy at age 44 for screening purposes. Procedure Code(s): --- Professional --- 00264, Colonoscopy, flexible; diagnostic, including collection of specimen(s) by brushing or washing, when performed (separate procedure) CPT copyright 2021 [employer]. All rights reserved. The codes documented in this report are preliminary and upon airframe and power plant mechanic review may be revised to meet current compliance requirements. Balwinder Caldwell DO 02/25/2025 1:42:52 PM This report has been signed electronically. Number of Addenda: 0 Note Initiated On: 02/25/2025 12:08 PM 02/25/25 1342 Date _ Balwinder Snyder Signature: Date (if indicated) CC: No Primary Care Physician; Balwinder Caldwell DO ~ Date Dictated: 02/25/25 1208 Date Transcribed: Art Teacher: GERARDO Signed [facility]05-08-2025 Procedure note [facility] Medical Records Department [address] [place] [address] Operative Report - CC Letter MR#: [id number] Acct: [id number] Name: MARVA RAMESH Rep #:[id number] : 2005 20 From: Balwinder Caldwell DO PCP: Care Physician,No [place] [facility] [place]/25/[place] No Primary Care Physician Re : Colonoscopy procedure for Marva Ramesh Dear Care Physician This procedure was performed on February. My impressions and recommendations are as follows: Impressions : - The entire examined colon is normal. - The examined portion of the ileum was normal. - No specimens collected. Recommendations : - Discharge patient to home. - Resume previous diet. - Continue present medications. - Repeat colonoscopy at age 44 for screening purposes. My findings are described in the full procedure note, which is enclosed. If I can be of further assistance, please feel free to contact me at . Sincerely, Balwinder Caldwell DO 02/25/2025 1:42:52 PM This report has been signed electronically. 02/25/25 1342 Date _ Balwinder Snyder Signature: Date (if indicated) CC: No Primary Care Physician; Balwinder Caldwell DO ~ Date Dictated: 02/25/25 1208 Date Transcribed: Art Teacher: GERARDO Signed [facility]05-08-2025 Consult note [facility] Medical Records Department [address] [place] [address] Anesthesia Postop Eval I 02/25/25 1302 MR#: [id number] Acct: [id number] Name: MARVA RAMESH Rep #:[id number] : 2005 20 From: Dario Galarza PCP: Care Physician,No [place] [facility] [place] Location: [place] [address] Anesthesia: Postop Eval I Current Vital Signs Temperature: 98 F Pulse Rate: 87 Blood Pressure: 111/70 Respiratory Rate: 16 Pulse Ox: 100 Oxygen Delivery Method: Room Air Assessment Airway patent: Yes Spontaneous unlabored respirations: Yes Mental status: Asleep nausea: No Vomiting: No Anesthesia Complication: No Fluid Hydration Crystalloid volume administer (ml): 900 Total IV fluid infused: 900 Progress Note Anesthesia document: Postop Eval 1 completed: Yes 02/25/25 1303 > Date _ Dario Jacques Signature: Date CC: ~ Signed [facility]05-08-2025 History and physical note [facility] Medical Records Department [address] [place] [address] History & Physical Exam 02/25/25 1208 MR#: [id number] Acct: [id number] Name: MARVA RAMESH Rep #:[id number] : 2005 20 From: Balwinder Caldwell DO PCP: Care Physician,No [place] [facility] [place] Location: [place] [address] HPI - General General Date of Admission: 02/25/25 Date of Service: 02/25/25 Chief Complaint: Gi bleeding HPI Narrative MARVA RAMESH, is a 20 F who presents with the Chief Complaint of anemia and rectal bleeding BRBPR 3 episodes, started last Saturday - hard stools and straining with BM - mild abdominal discomfort - dull RUQ pain and occasional sharp LLQ pain - she has a BM Once every 3-5 days - abdominal discomfort improves with a BM - c/o bloating - Father with colon cancer 45y/o - Paternal GF with colon CA at 65y/o - she is eating 3 meals a day - she is pescatarian? - a lot of vegetables, beans and rice - water intake is good - reports last labs showed anemia - regular menstrual cycles - have been heavy and now 6d instead of 2-3d, every 28d, LMP 20 days ago - cramping with menses - worsening with bloating - reports when in [facility] she had an US which they thought maybe showed a uterine cyst - Baobab fruit from the tree of life - powder supplement - helps with bloating/inflammation L [facility] Medical History Wears glasses Depression Anxiety Easy bruising Migraine headache Vasovagal episode Constipation Rectal bleeding Non-smoker Asthma Shortness of breath on exertion Leg cramps History of pain when walking History of edema Chest pain Bulimia Hives Emotional problems Bone fracture Anemia Seasonal allergies Home Medications ?Medication ?Instructions ?Recorded ?Last Taken ?Type fluticasone propionate 50 1 spray intranasal QDAY 01/19 05/14 Unknown History mcg/actuation nasal spray,suspension Allergy/AdvReac Type Severity Reaction Status Date / Time lactose (lactose intolerant) AdvReac Intermediate Nausea/Vom/ Verified 02/25/25 10:48 Diarrhea Family History Father Colon cancer Mother Depression Grandfather Diabetes Surgical History History of esophagogastroduodenoscopy (EGD) H/O hernia repair Social History current occupational status: student Smoking Status: Never smoker alcohol intake: never substance use type: does not use what type of physical activity do you participate in: walking, running and weight training frequency: 5-6 times per week additional social history: student from [employer] ROS Constitutional Constitutional: Denies fatigue, fever(s), poor appetite, weight gain or weight loss Gastrointestinal Gastrointestinal: Denies belching, bloating, change in bowel habits, change in stool character, chewing difficulty, coffee ground emesis, constipation, cramping, diarrhea, dyspepsia, dysphagia, earlysatiety, excessive flatus, fecalincontinence, heartburn, hematemesis, hematochezia, hemorrhoids, loose stools, melena, nausea, odynophagia, rectal bleeding, tenesmus, vomiting or weight changes Vital Signs Vital Signs Vital Signs: 02/25/25 10:52 02/25/25 10:52 02/25/25 12:03 Temperature 98.4 F 98.4 F Temperature Source Temporal Pulse Rate 60 60 Respiratory Rate 16 16 Respiratory Pattern Normal Blood Pressure 100/62 100/62 Blood Pressure Mean 74 Blood Pressure Source Monitor Blood Pressure Position Semi-Fowlers Blood Pressure Location Left Arm Pulse Ox 100 100 Oxygen Delivery Method Room Air Room Air Weight Weight: 156 lb 8.451 oz Body Mass Index (BMI) 27.7 Physical Exam Const alert, oriented x3, no apparent distress and healthy appearing General Appearance: cooperative GI normal to inspection, nondistended, normoactive bowel sounds, soft to palpation,non-tender and non-distended Percussion: normal to percussion Rectal Exam: deferred Results Lab / Micro Data 02/25/25 10:54 Labs: Laboratory Results - last 24 hr 02/25/25 10:54: WBC 8.0, RBC 4.00 L, Hgb 8.1 L, Hct 27.9 L, MCV 69.8 L, MCH 20.3L, MCHC 29.0 L, RDWStd Deviation 56.6 H, RDW Coeff of Saroj 23.3 H, Plt Count 838H*, MPV 9.4, Differential Comment , Diff Path Review February, Urine Test Negative Assessment & Plan Assessment/Plan (1) Iron deficiency anemia: (2) Rectal bleeding: (3) RUQ pain: (4) LLQ pain: PLAN: Assessment and Plan Assessment and Plan (1) Bloating: Status: Acute (2) Rectal bleeding: Status: Acute (3) RUQ pain: Status: Acute (4) LLQ pain: Status: Acute (5) Family history of colon cancer: Status: Acute (6) Heavy menstrual bleeding: Status: Acute Orders: Orders CBC W/Diff, Automated Today K62.5 - Hemorrhage of anus and rectum, R10.11 - Right upper quadrant pain, R10.32 - Left lower quadrant pain, R14.0 - Abdominal distension (gaseous), Z80.0 - Family history of malignant neoplasm of digestive organs Iron+Iron Binding Capacity Today K62.5 - Hemorrhage of anus and rectum, R10.11 - Right upper quadrant pain, R10.32 - Left lower quadrant pain, R14.0 - Abdominal distension (gaseous), Z80.0 - Family history of malignant neoplasm of digestive organs Abdomen Limited Today K62.5 - Hemorrhage of anus and rectum, R10.11 - Right upper quadrant pain, R10.32 - Left lower quadrant pain, R14.0 - Abdominal distension (gaseous), Z80.0 - Family history of malignant neoplasm of digestive organs Referrals [employer] N92.0 - Excessive and frequent menstruation with regular cycle, R10.32 - Left lower quadrantpain Medications: New sod sulf-pot chloride-mag sulf 1.479-0.188- 0.225 gram (Sutab) as directed for split dose bowel prep 24 tabs 0RF ondansetron HCl take two tablets PO two hours prior to start of bowel prep and one every 4 hours as needed for N/V 4 mg PO Q8H 5 tabs 0RF Plan 20-year-old female presents for initial consultation with complaints of rectal bleeding, abdominal pain and bloating. Family history is significant for fatherwith colon cancer at 45 years old and paternal grandfather. Abdominal exam reveals mild RUQ, epigastric and LLQ abdominal discomfort with palpation. I have ordered labs, abdominal ultrasound and colonoscopy. She reports a change in menstrualcycles with heavy menses, increase in duration and abdominal cramping with moving to the in 2022. She will complete labs today. I have recommended she complete an ABD US and colonoscopy. She will follow-up in the office post procedure. 02/25/25 1210 Cosigner Signature (if applicable): CC: No Primary Care Physician; Balwinder Friend, ~ Signed [facility]05-08-2025 [facility] Medical Records Department [address] [place] [address] History Physical Exam 02/25/25 1208 MR#: [id number] Acct: [id number] Name: GADIELMARVA Fang Rep #: [id number] : 2005 20 From: Balwinder Caldwell DO PCP: Care Physician,No [place] [facility] [place] [address] HPI - General General Date of Admission: 02/25/25 Date of Service: 02/25/25 Chief Complaint: Gi bleeding HPI Narrative MARVA RAMESH, is a 20 F who presents with the Chief Complaint of anemia and rectal bleeding BRBPR 3 episodes, started last Saturday - hard stools and straining with BM - mild abdominal discomfort - dull RUQ pain and occasional sharp LLQ pain - she has a BM Once every 3-5 days - abdominal discomfort improves with a BM - c/o bloating - Father with colon cancer 45y/o - Paternal GF with colon CA at 65y/o - she is eating 3 meals a day - she is pescatarian??? - a lot of vegetables, beans and rice - water intake is good - reports last labs showed anemia - regular menstrual cycles - have been heavy and now 6d instead of 2-3d, every 28d, LMP 20 days ago - cramping with menses - worsening with bloating - reports when in [facility] she had an US which they thought maybe showed a uterine cyst - Baobab fruit from the tree of life - powder supplement - helps with bloating/inflammation L PFSH Medical History Wears glasses Depression Anxiety Easy bruising Migraine headache Vasovagal episode Constipation Rectal bleeding Non-smoker Asthma Shortness of breath on exertion Leg cramps History of pain when walking History of edema Chest pain Bulimia Hives Emotional problems Bone fracture Anemia Seasonal allergies Home Medications ???Medication ???Instructions ???Recorded ???Last Taken ???Type fluticasone propionate 50 1 spray intranasal QDAY 02/04/25 U nknown History mcg/actuation nasal spray,suspension Allergy/AdvReac Type Severity Reaction Status Date / Time lactose (lactose intolerant) AdvReac Intermediate Nausea/Vom/ Verified 02/25/25 10:48 Diarrhea Family History Father Colon cancer Mother Depression Grandfather Diabetes Surgical History History of esophagogastroduodenoscopy (EGD) H/O hernia repair Social History current occupational status: student Smoking Status: Never smoker alcohol intake: never substance use type: does not use what type of physical activity do you participate in: walking, running and weight training frequency: 5-6 times per week additional social history: student from [employer] Constitutional Constitutional: Denies fatigue, fever(s), poor appetite, weight gain or weight loss Gastrointestinal Gastrointestinal: Denies belching, bloating, change in bowel habits, change in stool character, chewing difficulty, coffee ground emesis, constipation, cramping, diarrhea, dyspepsia, dysphagia, early satiety, excessive flatus, fecal incontinence, heartburn, hematemesis, hematochezia, hemorrhoids, loose stools, melena, nausea, odynophagia, rectal bleeding, tenesmus, vomiting or weight changes Vital Signs Vital Signs Vital Signs: 02/25/25 10:52 02/25/25 10:52 02/25/25 12:03 Temperature 98.4 F 98.4 F Temperature Source Temporal Pulse Rate 60 60 Respiratory Rate 16 16 Respiratory Pattern Normal Blood Pressure 100/62 100/62 Blood Pressure Mean 74 Blood Pressure Source Monitor Blood Pressure Position Semi-Fowlers Blood Pressure Location Left Arm Pulse Ox 100 100 Oxygen Delivery Method Room Air Room Air Weight Weight: 156 lb 8.451 oz Body Mass Index (BMI) 27.7 Physical Exam Const alert, oriented x3, no apparent distress and healthy appearing General Appearance: cooperative GI normal to inspection, nondistended, normoactive bowel sounds, soft to palpation, non-tender and non- distended Percussion: normal to percussion Rectal Exam: deferred Results Lab / Micro Data 02/25/25 10:54 Labs: Laboratory Results - last 24 hr 02/25/25 10:54: WBC 8.0, RBC 4.00 L, Hgb 8.1 L, Hct 27.9 L, MCV 69.8 L, MCH 20.3 L, MCHC 29.0 L, RDW Std Deviation 56.6 H, RDW Coeff of Saroj 23.3 H, Plt Count 838 H*, MPV 9.4, Differential Comment , Diff Path Review February, Urine Test Negative Assessment Plan Assessment/Plan (1) Iron deficiency anemia: (2) Rectal bleeding: (3) RUQ pain: (4) LLQ pain: PLAN: Assessment and Plan Assessment and Plan (1) Bloating: Status: Acute (2) Rectal bleeding: Status: Acute (3) RUQ pain: Status: Acute (4) LLQ pain: Status: Acu (more content not included)...[facility]05-08-2025 Consult note [facility] Medical Records Department [address] [place] [address] Pre-Anesthesia Evaluation 02/25/25 1150 MR#: [id number] Acct: [id number] Name: MARVA RAMESH Rep #:[id number] : 2005 20 From: Dani Carpenter MD PCP: Care Physician,No Primary Status :REG [facility] Y Race: AA Location: [place] [address] ASA Classification* ASA Classification ASA Classification: 2 Assessment & Plan Anesthesia* Anesthesia Assessment Anesthesia Assessment: Discussed sedation and/or anesthesia options, risks, benefits, and alternatives with patient/parents/legal guardian/POA. Questions invited. The patient/parents/legal guardian/POA seems to understand and agrees to proceedwith anesthesia plan. Reviewed the physical assessment, medical history, allergy history and patient home medications list prior to surgery/procedure/anesthetic and documented any changes. Performed airway and anesthesia risk assessments. Anesthesia Type Anesthesia Type: MAC History Source History Obtained from:: Patient and Chart Anesthesia Focused Assessment* Temperature: 98.4 F Pulse Rate: 60 Blood Pressure: 100/62 Respiratory Rate: 16 Pulse Ox: 100 Oxygen Delivery Method: Room Air Airway Assessment Mouth opens: >3 cm Mallampati Score: III Teeth Condition: Intact Neck Range of motion (ROM): Full ROM Focused Labs Anesthesia Preop lab: CBC WBC 6.3 K/mm3 (4.4-11.0) 02/13/25 08:37 02/13/25 RBC 3.72 M/mm3 (4.2-5.4) L 02/13/25 08:37 02/13/25 Hgb 7.0 g/dL (12.0-15.0) L 02/13/25 08:37 02/13/25 Hct 25.1 % (37-47) L 02/13/25 08:37 02/13/25 Plt Count 124 K/mm3 (150-450) L 02/13/25 08:37 02/13/25 CHEMISTRY Potassium 4.1 mmol/L (3.3-5.1) 02/13/25 08:37 02/13/25 Sodium 137 mmol/L (133-145) 02/13/25 08:37 02/13/25 BUN 8 mg/dL (4-19) 02/13/25 08:37 02/13/25 Creatinine 0.66 mg/dL (0.70-1.20) L 02/13/25 08:37 Glucose 86 mg/dL (70-99) 02/13/25 08:37 02/13/25 TSH 1.990 uIU/mL (0.300-4.200) 02/13/25 08:37 01/20 04/14 COAG Urine Test Pending 02/25/25 10:54 02/25/25 Pre-Assessment Diagnosis/Proposed Procedure Planned Operative Procedure(s): CSCOPE Anesthesia History Anesthesia History - safety leader: Anesthesia History - safety leader Hx Hospitalization No 02/24/25 09:27 Any Problems With Anesthesia No 02/24/25 09:27 Cholinesterase deficiency No 02/24/25 09:27 You/Your Family Experience No 02/24/25 09:27 fever (hyperthermia) with Relationship Recent Exposure to Contagious No 02/25/25 10:52 Disease Does patient have nerve No 02/24/25 09:27 stimulator Patient instructed to have device shut off --Does patient have Pacemaker No 02/25/25 10:52 or ICD? When Was Last Pacemaker Check QUESTION #4 FULL TEXT: You/Your Family Experience fever (hyperthermia) with Anesthesia Last Oral Intake Last Oral intake: Last Oral Intake NPO since 09:14 02/25/25 10:52 Meds taken in AM with sips of water? Meds patient instructed to take am of surgery Any additional information?: Yes NPO since: 09:14 (Patient water at 9:14 AM.) Meds taken in AM withsips of water?: Yes PONV PONV - safety leader: PONV - safety leader Female Yes 02/24/25 09:27 HX of Motion Sickness No 02/24/25 09:27 HX of N/V After Surgery No 02/24/25 09:27 Non-Smoker Yes 02/24/25 09:27 Duration of Surgery greater No 02/24/25 09:27 than 60 minutes Number of Risk Factors 2 02/24/25 09:27 PONV Score Moderate Risk 02/24/25 09:27 Height & Weight Height & Weight: Anesthesia: Height & Weight Height 5 ft 3 in 02/25/25 10:52 Weight: 71 kg 02/25/25 10:52 Body Mass Index (BMI) 27.7 02/25/25 10:52 Respiratory Assessment Respiratory Assessment - safety leader: Respiratory Tract Infection Hx - safety leader Hx Respiratory Tract Infection Yes: ALLERGY COLD/NO FEVER 02/24/25 09:27 Patient had a fever last week after a blood transfusion. It was short-lived. No respiratory symptoms. STOP Sleep Apnea STOP Sleep Apnea - safety leader: STOP Sleep Apnea - safety leader Hx Hypertension No 02/24/25 09:27 Hx Sleep Apnea No 02/24/25 09:27 CPAP BIPAP Do you snore loudly (louder No 02/24/25 09:27 than talking or can be heard Do you often feel tired/ Yes 02/24/25 09:27 fatigued/ sleepy during daytime? Has anyone observed you stop No 02/24/25 09:27 breathing during sleep? STOP Results Negative 02/24/25 09:27 QUESTION #5 FULL TEXT : Do you snore loudly (louder than talking or can be heard through closeddoors)? 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 Specify any problems FEVER,HANDS TURNED PURPLE 02/24/25 09:27 FOR 4 DAYS Hx of Preganancy in last 3 No 02/24/25 09:27 Months Nurse Filling Out Transfusion DSCHRIBER 02/24/25 09:27 & Questions: Date: 02/24/25 02/24/25 09:27 Time: 09:28 02/24/25 09:27 Patient unable to answer at this time (ie. confused, unrespo /Reproduction History /Reproductive History - safety leader: /Reproductive Hx- safety leader Hx Now No 02/24/25 09:27 Gestational Age (in weeks): EDC: Hx Hx Para Hx Section SAB No 02/24/25 09:27 Active Medications Active Medications: Current Medications Generic Name Dose Route Start Last Admin Trade Name Freq PRN Reason Stop Dose Admin Lactated Ringer's 1,000 mls @ 15 mls/hr 02/25/25 10:30 02/25/25 11:14 IV 15 mls/hr .Q48H ALICJA Administration PFSH Medical History Wears glasses Depression Anxiety Easy bruising Migraine headache Vasovagal episode Constipation Rectal bleeding Non-smoker Asthma Shortness of breath on exertion Leg cramps History of pain when walking History of edema Chest pain Bulimia Hives Emotional problems Bone fracture Anemia Seasonal allergies Home Medications ?Medication ?Instructions ?Recorded ?Last Taken ?Type fluticasone propionate 50 1 spray intranasal QDAY 01/19 05/14 Unknown History mcg/actuation nasal spray,suspension Allergy/AdvReac Type Severity Reaction Status Date / Time lactose (lactose intolerant) AdvReac Intermediate Nausea/Vom/ Verified 02/25/25 10:48 Diarrhea Family History Father Colon cancer Mother Depression Grandfather Diabetes Surgical History History of esophagogastroduodenoscopy (EGD) H/O hernia repair Social History current occupational status: student Smoking Status: Never smoker alcohol intake: never substance use type: does not use what type of physical activity do you participate in: walking, running and weight training frequency: 5-6 times per week additional social history: student from [employer] Review of Systems (Anesthesia) ROS Narrative System reviewed and no additional complaints, except as documented. 02/25/25 1203 mena HORNE> Date _ Dani Carpenter MD Cosigner Signature: Date CC: ~ Signed [facility]04-17-2025 Evaluation note* Diagnosis Onset Date Resolution Status Admit Date Bloating acute February 04 10:59am Family history of colon cancer acute February 04, 2025 10:59am Heavy menstrual bleeding acute February 04, 2025 10:59am LLQ pain acute February 04 10:59am Rectal bleeding acute January 10:59am RUQ pain acute February 04 10:59am [facility] Work Phone: [phone]) 207-931904-17-2025 Evaluation note* Diagnosis Onset Date Resolution Status Admit Date Bloating acute February 04 10:59am Family history of colon cancer acute February 04, 2025 10:59am Heavy menstrual bleeding acute February 04, 2025 10:59am LLQ pain acute February 04 10:59am Rectal bleeding acute January 10:59am RUQ pain acute February 04 10:59am Iron deficiency anemia acute 2024 10:22am LLQ pain acute February 25, 2025 10:22am Rectal bleeding acute February 25, 2025 10:22am RUQ pain acute February 25, 2025 10:22am [facility] Work Phone: 1(656) 383-426604-17-2025 Evaluation note* Diagnosis Onset Date Resolution Status Admit Date Bloating acute February 04 10:59am Family history of colon cancer acute February 04, 2025 10:59am Heavy menstrual bleeding acute February 04, 2025 10:59am LLQ pain acute February 04 10:59am Rectal bleeding acute January 10:59am RUQ pain acute February 04 10:59am Iron deficiency anemia acute Ma 2024 10:22am LLQ pain acute February 25, 2025 10:22am Rectal bleeding acute February 25, 2025 10:22am RUQ pain acute February 25, 2025 10:22am Bloating acute March 08, 2025 3:01pm Iron deficiency anemia acute Ma y 2024 3:01pm [place] [facility] Work Phone: consuck note Author Dario Galarza [facility] Note Date/Time February 25, 2025 1:03pm [facility] Medical Records Department [address] [place] [address] Anesthesia Postop Eval I 02/25/25 1302 MR#: [id number] Acct: [id number] Name: MARVA RAMESH Rep #:[id number] : 2005 20 From: Dario Galarza PCP: Care Physician,No Primary Status :REG [facility] Y Race: AA Location: [place] [address] Anesthesia: Postop Eval I Current Vital Signs Temperature: 98 F Pulse Rate: 87 Blood Pressure: 111/70 Respiratory Rate: 16 Pulse Ox: 100 Oxygen Delivery Method: Room Air Assessment Airway patent: Yes Spontaneous unlabored respirations: Yes Mental status: Asleep nausea: No Vomiting: No Anesthesia Complication: No Fluid Hydration Crystalloid volume administer (ml): 900 Total IV fluid infused: 900 Progress Note Anesthesia document: Postop Eval 1 completed: Yes 02/25/25 1303 <Electronically signed by Dario Galarza > Date _ Dario Jacques Signature: Date CC: ~ Signed [facility] Work Phone: Chief Complaint and Reason for Visit Chief Complaint Admit Date blood in stool family history colon canc er February 04, 2025 10:59am INT LAB ORDERS February 04, 2025 12: 12pm E-ORDER February 11, 2025 4:3 8pm RUQ PAIN, LLQ PAIN, BLOATING, RECTAL BLE EDING February 15, 2025 7:30am 1 unit PRBC's February 15, 2025 11: 00am Reason for Visit Admit Date Bloating February 04, 2025 10: 59am Family history of colon cancer January 10:59am Heavy menstrual bleeding February 04 10:59am LLQ pain February 04, 2025 10: 59am Rectal bleeding February 04, 2025 10: 59am RUQ pain February 04, 2025 10: 59am Reason for Visit Admit Date Bloating February 04, 2025 10: 59am Family history of colon cancer January 10:59am Heavy menstrual bleeding February 04 10:59am LLQ pain February 04, 2025 10: 59am Rectal bleeding February 04, 2025 10: 59am RUQ pain February 04, 2025 10: 59am Iron deficiency anemia February 25, 2025 10: 22am LLQ pain February 25, 2025 10:22a m Rectal bleeding February 25, 2025 10:22a m RUQ pain February 25, 2025 10:22a m Chief Complaint Admit Date blood in stool family history colon canc er February 04, 2025 10:59am INT LAB ORDERS February 04, 2025 12: 12pm E-ORDER February 11, 2025 4:3 8pm RUQ PAIN, LLQ PAIN, BLOATING, RECTAL BLE EDING February 15, 2025 7:30am 1 unit PRBC's February 15, 2025 11: 00am Test Result March 08, 2025 3:01p m Reason for Visit Admit Date Bloating February 04, 2025 10: 59am Family history of colon cancer January 10:59am Heavy menstrual bleeding February 04 10:59am LLQ pain February 04, 2025 10: 59am Rectal bleeding February 04, 2025 10: 59am RUQ pain February 04, 2025 10: 59am Iron deficiency anemia February 25, 2025 10: 22am LLQ pain February 25, 2025 10:22a m Rectal bleeding February 25, 2025 10:22a m RUQ pain February 25, 2025 10:22a m Bloating March 08, 2025 3:01p m Iron deficiency anemia March 08, 2025 3: 01pm Family History Relationship Condition Age at Onset Recorded Date/T mohan father Malignant neoplasm of colon Unknown mother Depression Unknown grandfather Diabetes mellitus Unknown Advance Directives Advance Directive Response Recorded Date/ Time Do you have a Healthcare Power of Skip Operator? No February 24, 2025 9:27am Summary Purpose Additional Source Comments Care Teams (unrecognized sec tion and content) Team Status: Active Member Role Status Dates No Primary Care Physician Primary Care Provider Active Team Status: Inactive Member Role Status Dates MIKE Dennis Attending Provider Active Start: February 04, 2025 End: February 04, 2025 Team Status: Inactive Member Role Status Dates No Primary Care Physician Primary Care Provider Active Start: February 04, 2025 End: February 04, 2025 MIKE Dennis Attending Provider Active Start: February 04, 2025 End: February 04, 2025 MIKE Dennis Referring Provider Active Start: February 04, 2025 End: February 04, 2025 Team Status: Inactive Member Role Status Dates No Primary Care Physician Primary Care Provider Active Start: February 11, 2025 End: February 11, 2025 MIKE Dennis Attending Provider Active Start: February 11, 2025 End: February 11, 2025 MIKE Dennis Referring Provider Active Start: February 11, 2025 End: February 11, 2025 Team Status: Active Member Role Status Dates No Primary Care Physician Primary Care Provider Active Start: February 15, 2025 MIKE Dennis Attending Provider Active Start: February 15, 2025 MIKE Dennis Referring Provider Active Start: February 15, 2025 Team Status: Inactive Member Role Status Dates No Primary Care Physician Primary Care Provider Active Start: February 15, 2025 End: February 15, 2025 MIKE Dennis Attending Provider Active Start: February 15, 2025 End: February 15, 2025 IMKE Dennis Referring Provider Active Start: February 15, 2025 End: February 15, 2025 Team Status: Inactive Member Role Status Dates No Primary Care Physician Primary Care Provider Active Start: February 25, 2025 End: February 25, 2025 No Primary Care Physician Referring Provider Active Start: February 25, 2025 End: February 25, 2025 Dr. Balwinder Caldwell DO Attending Provider Active Start: February 25, 2025 End: February 25, 2025 Team Status: Active Member Role Status Dates No Primary Care Physician Primary Care Provider Active Start: February 25, 2025 No Primary Care Physician Referring Provider Active Start: February 25, 2025 Dr. Balwinder Caldwell DO Attending Provider Active Start: February 25, 2025 Dr. Balwinder Caldwell DO Other Provider Active St art: February 25, 2025 Team Status: Inactive Member Role Status Dates MIKE Dennis Attending Provider Active Start: March 08, 2025 End: March 08, 2025 No Primary Care Physician Primary Care Provider Active Start: March 08, 2025 End: March 08, 2025 No Primary Care Physician Referring Provider Active Start: March 08, 2025 End: March 08, 2025 Goals (unrecognized section and content) Goals may be documented in a n alternate section Source Comments (unrecognize d section and content) In the event this informatio n is protected by the Federal Confidentiality of Alcohol and Drug Abuse Patient Records regulations: The Federal rules restrict any use of the information to criminally investigate or prosecute any alcohol or drug abuse patient.[facility] the event this information is protected by the Federal Confidentiality of Alcohol and Drug Abuse Patient Records regulations: The Federal rules restrict any use of the information to criminally investigate or prosecute any alcohol or drug abuse patient.[facility] Reason for Visit (unrecogniz ed section and content) Reason Comments Patient Question INFORMATION SOURCE (unrecogn ized section and content) DATE CREATED AUTHOR 03/18/2025 [facility] DATE CREATED AUTHOR AUTHOR'S MATT KHANNA 03/18/[address] [facility] FOR RECORDS PERTAINING TO PATIENTS WHO ARE OR HAVE BEEN ENROLLED IN A CHEMICAL DEPENDENCY/SUBSTANCEABUSE PROGRAM, SOME INFORMATION MAY BE OMITTED. This clinical summary was aggregated from multiple sources. Caution should be exercised in using it in the provision of clinical care. This summary normalizes information from multiple sources, and as a consequence, information in this document may materially change the coding, format and clinical context of patient data. In addition, data may be omitted in some cases. CLINICAL DECISIONS SHOULD BE BASED ON THE PRIMARY CLINICAL RECORDS. [employer] provides no warranty or guarantee of the accuracy or completeness of information in this document.
--- NOTE | 2025-06-27 20:50 | RAD_ITS ---
PROCEDURE: NECK FOR SOFT TISSUE 06/27/2025 REASON FOR EXAM: FISH BONE IN THROAT TECHNIQUE: Procedure Code: RADNE Modality: DX Procedure: NECK FOR SOFT TISSUE FINDINGS: No acute fracture or subluxation. No significant degenerative changes. The prevertebral soft tissues appear unremarkable. The visualized airway is patent. A 3 mm somewhat linear density is noted in the soft tissues posterior to the airway at the level of the thyroid cartilage, which could represent a foreign body, or may represent calcification associated with the thyroid cartilage. RAD/Neck for Soft Tissue IMPRESSION: As above. Reading Location: [id number]
[2025-06-27 21:38] VITALS: BP 107/67; PULSE 53; RESP 16; O2SAT 100
--- NOTE | 2025-06-27 21:55 | CT_ITS ---
PROCEDURE: SOFT TISSUE NECK WITHOUT CONTR 06/27/2025 REASON FOR EXAM: FISH BONE IN THROAT TECHNIQUE: Procedure Code: CTNE Modality: CT Procedure: SOFT TISSUE NECK WITHOUT CONTR CONTRAST: VOLUME: mL One or more dose reduction techniques were used (e.g., Automated exposure control, adjustment of the mA and/or kV according to patient size, use of iterative reconstruction technique). COMPARISON: Radiographs dated earlier on the same day. FINDINGS: Lack of IV contrast significantly limits evaluation. A punctate hyperdensity is noted within the anterior left hypopharyngeal soft tissues (axial image 49), which could represent a tiny calcification, however a tiny radiopaque foreign body can not be entirely excluded. Otherwise no radiopaque foreign body is identified. Otherwise the unenhanced parapharyngeal soft tissues appear symmetric and unremarkable. The unenhanced major salivary glands are grossly symmetric and unremarkable. No cervical lymphadenopathy. The unenhanced thyroid gland is unremarkable. The visualized airway is patent. The paranasal sinuses and mastoid air cells are clear. The visualized lung apices are clear. No acute osseous abnormality. CT/Soft Tissue Neck without Contr IMPRESSION: Punctate hyperdensity within the anterior left hypopharyngeal soft tissues. Th is could represent a tiny calcification, however a tiny radiopaque foreign body can not be entirely excluded. Otherwise unremarkable but limited noncontrast CT of the neck. Reading Location: [id number]
--- NOTE | 2025-06-27 22:10 | EDS_ITS ---
HPI History of Present Illness Chief Complaint: Foreign Body Narrative Narrative: Patient is a 20-year-old female presenting to the emergency department for concern of a fishbone in her esophagus. Patient states this has happened once before. States that [place] different [place] and thought she got a fishbone stuck in her throat. States she went to the emergency department however they told her that it would be around $5000 for her to be seen without insurance. States that she traveled back here today and still has the feeling of a foreign body in her throat which is why she is here. She is able to tolerate p.o. Denies any difficulty breathing. Denies any chest pain or shortness of breath. [facility] Medical History Wears glasses Depression Anxiety Easy bruising Migraine headache Vasovagal episode Constipation Rectal bleeding Non-smoker Asthma Shortness of breath on exertion Leg cramps History of pain when walking History of edema Chest pain Bulimia Hives Emotional problems Bone fracture Anemia Seasonal allergies Home Medications ?Medication ?Instructions ?Recorded ?Last Taken ?Type fluticasone propionate 50 1 spray intranasal QDAY 01/19 05/14 Unknown History mcg/actuation nasal spray,suspension ascorbic acid (vitamin C) 500 mg mg PO 03/08/25 Unknow n History capsule ferrous sulfate 134 mg (27 mg 134 mg PO ONCE 03/08/25 Unknown History iron) tablet Allergy/AdvReac Type Severity Reaction Status Date / Time lactose (lactose intolerant) AdvReac Intermediate Nausea/Vom/ Verified 06/27/25 19:38 Diarrhea Family History Father Colon cancer Mother Depression Grandfather Diabetes Surgical History History of esophagogastroduodenoscopy (EGD) H/O hernia repair Social History current occupational status: student Smoking Status: Never smoker alcohol intake: never substance use type: does not use what type of physical activity do you participate in: walking, running and w eight training frequency: 5-6 times per week additional social history: student from [employer] ROS ROS ED ROS Narrative see HPI EXAM Physical Exam Narrative Exam Narrative: Vital signs: Reviewed General: Alert and orientedx3. No acute distress HEENT: Head is normocephalic and atraumatic, sinuses nontender, pupils equal round and reactive. Nares are patent. Oropharynx and throat exams normal. No drooling. Neck: Supple without lymphadenopathy nontender. Trachea midline. No crepitus. No trismus. Cardiovascular: Regular rate and rhythm, no murmurs. No rubs or gallops. Normal S1 and S2 Respiratory: Clear to auscultation bilaterally. No wheezes, rales, rhonchi Chest: Chest wall with no crepitus. Abdominal: Soft and nontender. Normal bowel sounds. No guarding or rebound. Nonsurgical abdomen Extremities: No tenderness. No bruising. Normal range of motion. Normal sensation. Skin: No rash or redness. Neurological: Cranial nerves II through XII are grossly intact. Normal strength and sensation. Normal cerebellar function The rest of the physical exam is unremarkable Const Vital Signs: 06/27/25 19:38 06/27/25 19:58 06/27/25 21:38 Temperature 97.2 F L Temperature Source Temporal Pulse Rate 58 L 53 L Respiratory Rate 16 16 Respiratory Effort Normal Non-Labored Respiratory Pattern Normal Blood Pressure 130/72 H 107/67 Blood Pressure Mean 91 80 Pulse Ox 99 100 Oxygen Delivery Method Room Air Room Air MDM MDM MDM Narrative Medical decision making narrative: Patient is a 20-year-old female presenting to the emergency department for concern of a fishbone in her esophagus. Patient was seen and examined. Vitals are stable. Patient resting bed comfortably no acute distress. No respiratory distress on exam. No crepitus of the chest wall or the neck. She is able to tolerate p.o. No intolerance of her secretions. Initially a x- ray of the neck was ordered however there was not concrete evidence of a fishbone so a CT was then ordered. On my review of the x-ray I do not see a linear density consistent with a fishbone. CT shows a punctate hyperdensity within the anterior left hypopharyngeal soft tissues that could represent a tiny calcification however a tiny radiopaque foreign body cannot be entirely excluded. Otherwise unremarkable CT of the neck. Patient is able to tolerate her secretions. Able to tolerate food and drink. No respiratory distress. No trismus on exam. Patient is stable for outpatient management. She was given GI, Dr. Caldwell, follow-up for possible outpatient EGD if her symptoms do not improve over the next few days. She was instructed to return if she develops any difficulty tolerating p.o., pain or respiratory issues. Patient discharged from the Emergency Department. I do not feel that the patient's evaluation reveals any acute reason for admission at this time. I instructed them to either follow-up with their primary care physician or promptly return to the Emergency Department for reevaluation should symptoms worsen or new symptoms develop. I explained what symptoms would indicate the need to return to the emergency department. Shared decision making was used. The patient voiced understanding of the treatment plan and is agreeable with it. Clinical impression Possible esophageal foreign body History & Record Review Discussion w/independent historian: Patient and Friend Radiography Diagnostic Testing: Clinical Impression(s) from Imaging Studies Soft Tissue Neck X-Ray 06/27/25 20:50 IMPRESSION: As above. Reading Location: [facility] Soft Tissue Neck CT 06/27/25 21:55 IMPRESSION: Punctate hyperdensity within the anterior left hypopharyngeal soft tissues. This could represent a tiny calcification, however a tiny radiopaque foreign body can not be entirely excluded. Otherwise unremarkable but limited noncontrast CT of the neck. Reading Location: [facility] Discharge Plan Triage Chief Complaint: Foreign Body ED Provider: April Rehman Dx/Rx/DC Orders Clinical Impression: Esophageal foreign body Instructions: ED Swallowed Foreign Body (Adult) Prescriptions: No Action fluticasone propionate 50 mcg/actuation spray,suspension 1 spray intranasal QDAY Rx Instructions: administer into each nostril ascorbic acid (vitamin C) 500 mg capsule PO ferrous sulfate 134 mg (27 mg iron) tablet 134 mg PO ONCE Primary Care Provider: Care Physician,No Primary Referrals: Balwinder Caldwell DO [Med Staff - Active Staff] - 1 Week Care Physician,No Primary [Primary Care Provider] - Activity Restrictions/Additional Instructions: Continue to monitor at home, if you get any worsening symptoms return to the ED. Patient discharged from the Emergency Department. I do not feel that the patient's evaluation reveals any acute reason for admission at this time. I instructed them to either follow-up with their primary care physician or promptly return to the Emergency Department for reevaluation should symptoms worsen or new symptoms develop. I explained what symptoms would indicate the need to return to the emergency department. Shared decision making was used. The patient voiced understanding of the treatment plan and is agreeable with it. Print Language: German Disposition Disposition: Home, Self Care
== END 2025-06-27 23:50 | disposition home or self-care (01) ==
PROVIDERS: Emergency Provider Student in an Organized Health Care Education/Training Program; Visit Provider Student in an Organized Health Care Education/Training Program
DX: R09.A9 Foreign body sensation, other site (principal)
CPT/HCPCS: 70360; 70490; 99282

== ENCOUNTER → 2025-08-13 | Outpatient (CLI) | payer OTHER, SELFPAY ==
[2025-08-13 13:37] LABS: Hematocrit 36.6 % (37-47); Hemoglobin 11.9 g/dL (12.0-15.0); Immature Granulocytes Count 0.010 X10^3/uL (0.0-0.0); Mean Corp Hgb Conc 32.5 g/dL (32-36); Mean Corpuscular Volume 89.1 fL (81-99); Mean Platelet Vol. 10.0 fl (6.2-12.0); NRBC Flagged by Analyzer 0 % (0-5); Platelet Count 331 K/mm3 (150-450); RBC Distribution Width CV 14.1 % (11.6-14.6); RBC Distribution Width SD 44.8 fl (35.1-43.9); Red Blood Count 4.11 M/mm3 (4.2-5.4); White Blood Count 7.8 K/mm3 (4.4-11.0)
== END | disposition home or self-care (01) ==
LOC: LAB 12:43
PROVIDERS: Referring Provider Internal Medicine Cardiovascular Disease; Visit Provider Internal Medicine Cardiovascular Disease
DX: D50.9 Iron deficiency anemia, unspecified (principal)
CPT/HCPCS: 36415; 85025